=== PATIENT | female | born 1970 | race Caucasian/White ===

== ENCOUNTER 2024-09-25 09:54 | Emergency (ER) | payer BC, SELFPAY ==
--- NOTE | ~2024-09-25 | XR_ITS ---
EXAMINATION: XR CHEST 2 VIEW CLINICAL INFORMATION: Chest pain COMPARISON: None TECHNIQUE: PA and lateral views of the chest obtained. FINDINGS: The lungs are clear. There are no pleural effusions. The cardiomediastinal silhouette is normal. No rib fracture, bone lesion or pneumothorax is detected. Right upper quadrant surgical clips are likely post cholecystectomy. XR/XR chest 2V IMPRESSION: No acute cardiopulmonary disease. Electronically signed by: Arsenio Landon MD 09/25/2024 11:51 AM [facility]
[2024-09-25 11:12] VITALS: BP 121/80; PULSE 81; RESP 18; TEMP 36.1; O2SAT 98; BMI 33.2
--- NOTE | 2024-09-25 11:14 | ED_ITS ---
HPI - General Adult General Chief complaint: Chest Pain Stated complaint: sob Time Seen by Provider: 09/25/24 22:48 Source: patient Mode of arrival: ambulatory Limitations: no limitations History of Present Illness ED Provider: Dr. Cole Harrington HPI narrative: 54-year-old female with a history of hypertension, borderline hyperlipidemia, who presents emergency department for evaluation of chest pain. Patient states she woke up at 04:00 hours with chest pain. She points to her left breast area when asked to localize the pain. She states the pain has been a constant burning sensation which waxes and wanes in intensity. At the time my evaluation the pain was 7/10. Patient states she took Tums with no relief for the pain. She states the pain does not change with breathing but does change with movement. She states she did have an episode of nausea vomiting and diaphoresis associated with lightheadedness as well. She states she does have dyspnea on exertion but no shortness of breath at rest. She states that the pain at 1 point did radiate to her right neck and right jaw. The patient does not take any hormonal replacement/estrogen supplements but does take an [id number] herbal menopause supplement (estrofen). Patient states she did go on a several day cruise and came home on 08/20/2024. She did not have any pain or swelling in her lower extremities. She has had no recent surgeries. Related Data Allergies Allergy/AdvReac Type Severity Reaction Status Date / Time No Known Allergies Allergy Verified 09/25/24 11:15 Review of Systems 2 Review of Systems: Yes all other systems are reviewed and are negative [facility] Past Medical History [facility] Narrative: Social history: She denies tobacco use. She occasionally drinks alcohol. She occasionally eats a THC edible at night for sleep. Social History Social History Alcohol intake: current Alcohol intake frequency: holidays/special occasions only Smoked in Last 30 Days: No Use of substances other than those prescribed or required for medical reasons: Yes Substance Use Type: Marijuana Substance Use Type Other:: edibles Advance Directives: No Advance Directives Information Provided: No Do you have a plan to hurt others: No Plan Patient : No Physical Exam ED Vital Signs: Vital Signs - 24 hr 09/25/24 11:12 09/25/24 18:01 09/25/24 20:23 Temperature 97.0 F 97.0 F 97.5 F Pulse Rate 81 86 81 Respiratory Rate 18 20 24 H Blood Pressure 121/80 108/81 120/81 Pulse Oximetry 98 96 100 Oxygen Delivery Method Room Air Room Air Room Air 09/25/24 20:44 09/25/24 22:30 09/26/24 00:00 Temperature 97.5 F 97.6 F 98.1 F Pulse Rate 81 70 66 Respiratory Rate 24 H 18 18 Blood Pressure 120/81 112/77 121/78 Pulse Oximetry 100 99 98 Oxygen Delivery Method Room Air Room Air Room Air BMI result Body Mass Index 33.2 Vital signs did reveal a variable respiratory rate from 18-24 breaths per minute, O2 sat ranged from 96-100%, blood pressure was normal. She had no tachycardia. Exam: General: Awake, alert in no distress Head: Normocephalic, atraumatic EENT: PERRL, Lids normal, sclera normal, conjunctiva normal, nose normal , ears normal, throat without erythema or exudates Neck: Supple, no adenopathy Lung: breath sounds symmetric, no wheezing, rales or rhonchi Chest: symmetric movement, left costochondral tenderness Heart: regular rate and rhythm, normal S1, S2 no murmurs or rubs Abdomen: soft, non-tender, nondistended, normal bowel sounds Back: no vertebral tenderness, no CVAT Extremities: no deformities, moves all extremities symmetrically, no swelling/edema Neuro: Awake, alert, oriented, normal speech, cranial nerves intact, moves all extremities symmetrically Psych: Pleasant, cooperative Course Course Course Narrative: This is a rapid medical exam performed by Natanael Farfan NP: Additional HPI, ROS, PE not included below will be deferred to primary provider. Patient is a 54-year-old female presenting with chest pain since this am. States yesterday felt not right, today developed chest pain and some shortness of breath. Plan: EKG, labs, CXR Medications Administered Discontinued Medications Generic Name Dose Route Start Last Admin Trade Name Freq PRN Reason Stop Dose Admin Al Hydroxide/Mg Hydroxide 30 ml 09/25/24 23:08 09/25/24 23:35 Magnesium Hydrox/Alum Hydrox 30 Ml Oral.Susp PO 09/25/24 23:09 30 ml ONCE STA Administration Ketorolac Tromethamine 15 mg 09/25/24 23:08 09/25/24 23:35 Ketorolac Tromethamine 15 Mg/Ml Vial IVPUSH 09/25/24 23:09 15 mg ONCE STA Administration Medical Decision Making Medical Decision Making [facility] Narrative: 54-year-old female with a history of hypertension, borderline hyperlipidemia, who presents emergency department for evaluation of chest pain that she woke up with a at 04:00 hours, pain is located in her left anterior chest,. Patient states she woke up at 04:00 hours with chest pain. She points to her left breast area when asked to localize the pain. She had a occasional associated diaphoresis, nausea, vomiting, lightheadedness, pain radiating to her right neck and jaw. By the time I evaluated the patient she had been in the emergency department for 13 hours and continues to have chest pain which she was 05/23. Vital signs were reviewed and she did have intermittent elevation in her respiratory rate to 24, O2 sats ranging from 96-100% with no tachycardia. Physical examination did reveal left anterior chest tenderness along the costochondral joints. Patient did go on a cruise and came back on 08/20/2024 Differential diagnosis: ?Includes but is not limited to myocardial infarction, myocardial ischemia, pulmonary embolism, costochondritis, musculoskeletal pain, pleurisy, pneumothorax, GERD Course: 23:16 My interpretation patient's laboratory evaluation is as follows: CBC was normal. AST and ALT were elevated 55 and 69. Urinalysis was negative. COVID- 19, influenza and RSV were negative. Initial troponin was below detectable limits. Given your symptoms and persistent chest pain I did order a repeat troponin and a D-dimer. Given her tenderness over costochondral joints, I ordered Toradol 15 mg IV. 00:24 The patient's repeat high sensitive troponin I was below detectable limits was reassuring suggesting that her chest pain is not caused by myocardial infarction or myocardial injury. Patient's D-dimer was below 230 which is a good negative predictive for pulmonary embolism. The patient did get some improvement of her pain with the IV Toradol. At this time I believe the patient's pain is caused by costochondritis and I did discuss this with the patient. She was advised to take ibuprofen 400 mg 3 times a day for 4 days then 3 times a day as needed for pain. She was also advised to take Tylenol 3 times a day as needed for pain. She was given printed and verbal instructions and discharged home. Admission/Observation Consideration of admission/observation: Escalation of care including admission/observation considered Lab Data MDM Lab Attestation statement: I reviewed the patient's lab results. 09/25/24 11:31 09/25/24 11:31 Labs: Lab Results 09/25/24 09/25/24 Range/Units 11: 23:32 WBC 8.6 (4.8-10.8) X10*3/uL RBC 4.97 (4.20-5.50) X10*6/uL Hgb 14.9 (12.0-16.0) g/dl Hct 43.7 (37.0-47.0) % MCV 87.9 (80.0-98.0) fL MCH 30.0 (27.0-33.0) pg MCHC 34.1 (31.0-35.0) g/dl RDW 13.0 (11.0-16.0) % Plt Count 344 (160-400) X10*3/uL MPV 9.5 (9.4-12.3) fL Immature Gran % (Auto) 0.3 (0.0-0.4) % Neut % (Auto) 48.8 (45-73) % Lymph % (Auto) 42.5 H (20-40) % [place] % (Auto) 6.3 (2-11) % Eos % (Auto) 1.4 (0-4) % Baso % (Auto) 0.7 (0-2) % Lymph # (Auto) 3.7 (1.2-4.9) X10*3/uL [place] # (Auto) 0.5 (0.1-1.2) X10*3/uL Eos # (Auto) 0.1 (0.0-0.4) X10*3/uL Baso # (Auto) 0.1 (0.0-0.2) X10*3/uL Abs Immat Gran (auto) 0.03 (0.00-0.03) X10*3/uL Absolute Neuts (auto) 4.2 (2.0-8.3) x10*3/uL Absolute Nucleated RBC 0.000 (0.0-0.012) X10*3/uL Nucleated RBC % (auto) 0.0 (0.0-0.2) /100WBC PT 11.5 (10.9-12.4) SEC INR 1.0 (0.9-1.1) D-Dimer High Sensitivty 226 NG/ML Sodium 142 (135-145) mmol/L Potassium 3.9 (3.3-5.1) mmol/L Chloride 104 (96-108) mmol/L Carbon Dioxide 27 (22-29) mmol/L Anion Gap 15 (12-20) BUN 10 (9-16) mg/dL Creatinine 0.85 (0.5-1.4) mg/dL Estim Creat Clear Calc 83.0 Estimated GFR > 60 Random Glucose 107 (60-115) mg/dL Calcium 10.2 (8.4-10.2) mg/dL Magnesium 2.0 (1.6-2.6) mg/dL Total Bilirubin 0.6 (0.0-1.0) mg/dL AST 55 H (5-31) U/L ALT 69 H (0-31) U/L Alkaline Phosphatase 84 (39-117) U/L Troponin I High Sens < 2.7 < 2.7 (<3.5-17.0) ng/L Total Protein 8.3 H (6.5-8.0) g/dL Albumin 4.6 (3.5-5.0) g/dL Urine Color Yellow Urine Appearance Clear Urine pH 5.5 (5.0-9.0) Ur Specific [place] 1.015 (1.005-1.025) Urine Protein Negative (Neg-Trace) mg/dL Urine Glucose (UA) Negative (Negative) mg/dL Urine Ketones Negative (Negative) mg/dL Urine Blood Negative (Negative) Urine Nitrite Negative (Negative) Ur Leukocyte Esterase Negative (Negative) Influenza Type A (PCR) NEGATIVE (Negative) Influenza Type B (PCR) NEGATIVE (Negative) RSV RNA Qual (PCR) NEGATIVE (Negative) SARS-CoV-2 RNA (RT-PCR) NEGATIVE (Negative) Independent Interpretation I performed an independent interpretation of an: EKG and Plain X-Ray Interpretation: My interpretation patient's two view chest x-ray is as follows: No acute disease My interpretation of the patient's 12 EKG done at 11:11 hours is as follows: Normal sinus rhythm with a rate of 70, normal ME interval, QRS duration and QTC interval, no ST segment elevation, no ST segment depression, no significant T- wave abnormalities Radiology Impression Discussion of test interpretation with radiology: I have reviewed the radiologist's reading. Radiologist Impression: XR chest 2V IMPRESSION: No acute cardiopulmonary disease. Electronically signed by: Arsenio Landon MD 09/25/2024 11:51 AM EST RP Chronic Conditions Patient?s care impacted by: Hypertension and Other (Borderline hyperlipidemia) Discharge Plan Discharge Clinical Impression: Acute costochondritis Patient Disposition: Home, Self-Care Instructions: Costochondritis (ED) Additional Instructions: You had a complete blood count which was normal. Your comprehensive metabolic panel did reveal a very slight elevation in your AST and ALT of 55 and 69. This is not very significant elevation. You should follow-up with your doctor to get repeat liver testing and for possible further testing if you are liver tests are worse. These tests should be repeated in 2-4 weeks. Your high sensitive troponin I (a marker of heart damage/heart attack) was initially normal and the repeat troponin 12 hours later was also normal. This is very reassuring and suggests that your chest pain was not due to heart attack or heart damage. Your D-dimer (marker of making too many blood clots in your body) was less than 230 which again is reassuring suggesting that your chest pain is not caused by a blood clot to your lungs. On your examination you are tender over the costochondral joints (rib to sternum joints close) which most likely explains your pain. Take ibuprofen 200 mg pills, 2 pills every 6 hours (3 times a day) for 4 days then every 6 hours as needed for pain Follow-up with your doctor in 2 days. Please return to the emergency department if your symptoms get worse or if you develop any symptoms that are concerning to you. Print Language: Nepali
--- NOTE | 2024-09-25 11:14 | ECG_ITS ---
Test Reason : cp Blood Pressure : / mmHG Vent. Rate : 070 BPM Atrial Rate : 070 BPM P-R Int : 130 ms QRS Dur : 072 ms QT Int : 388 ms P-R-T Axes : 027 -27 022 degrees QTc Int : 419 ms Normal sinus rhythm Possible Anterior infarct , age undetermined Abnormal ECG No previous ECGs available Referred By: Lydia Farfan Electronically Signed By:Darron Loomis
[2024-09-25 11:39] LABS: MANUAL DIFF FLAG NO
[2024-09-25 11:40] LABS: Basophils Absolute Auto 0.1 X10*3/uL (0.0-0.2); Basophils Percent Auto 0.7 % (0-2); Eosinophils Absolute Auto 0.1 X10*3/uL (0.0-0.4); Eosinophils Percent Auto 1.4 % (0-4); Hematocrit 43.7 % (37.0-47.0); Hemoglobin 14.9 g/dl (12.0-16.0); Imm Gran Abs Auto 0.03 X10*3/uL (0.00-0.03); Imm Gran Pct Auto 0.3 % (0.0-0.4); Lymphocytes Absolute Auto 3.7 X10*3/uL (1.2-4.9); Lymphocytes Percent Auto 42.5 % (20-40); Mean Corpuscular HGB Conc 34.1 g/dl (31.0-35.0); Mean Corpuscular Volume 87.9 fL (80.0-98.0); Mean Platelet Volume 9.5 fL (9.4-12.3); Monocytes Absolute Auto 0.5 X10*3/uL (0.1-1.2); Monocytes Percent Auto 6.3 % (2-11); Neutrophils Absolute Auto 4.2 x10*3/uL (2.0-8.3); Neutrophils Percent Auto 48.8 % (45-73); Platelet Count 344 X10*3/uL (160-400); Red Blood Count 4.97 X10*6/uL (4.20-5.50); White Blood Count 8.6 X10*3/uL (4.8-10.8)
[2024-09-25 11:42] LABS: Appearance Urine Clear; Color Urine Yellow; Glucose Urine UA Negative (Negative); Leukocyte Esterase Urine Negative (Negative); Nitrite Urine Negative (Negative); PH 5.5 (5.0-9.0); Specific Gravity - Urine 1.015 (1.005-1.025); Urine Blood Negative (Negative); Urine Ketones Negative (Negative); Urine Protein Negative (Neg-Trace)
[2024-09-25 12:00] LABS: Alanine Aminotransferase 69 U/L (0-31); Albumin Level 4.6 g/dL (3.5-5.0); Alkaline Phosphatase 84 U/L (39-117); Anion Gap 15 (12-20); Aspartate Amino Transferase 55 U/L (5-31); Bilirubin Total 0.6 mg/dL (0.0-1.0); Blood Urea Nitrogen 10 mg/dL (9-16); Calcium 10.2 mg/dL (8.4-10.2); Carbon Dioxide 27 mmol/L (22-29); Chloride 104 mmol/L (96-108); Estimated Glomerular Filt Rate > 60; Glucose Random 107 mg/dL (60-115); Potassium 3.9 mmol/L (3.3-5.1); Prothrombin Time 11.5 SEC (10.9-12.4); Sodium 142 mmol/L (135-145); Total Protein 8.3 g/dL (6.5-8.0)
[2024-09-25 12:05] LABS: Troponin-I High Sensitivity < 2.7 ng/L (<3.5-17.0)
[2024-09-25 12:24] LABS: Influenza A PCR NEGATIVE (Negative); Influenza B PCR NEGATIVE (Negative); Resp Syncy Virus RNA Qual PCR NEGATIVE (Negative); SARS COV2 PCR INHOUSE NEGATIVE (Negative)
[2024-09-25 18:01] VITALS: BP 108/81; PULSE 86; RESP 20; TEMP 36.1; O2SAT 96
--- NOTE | 2024-09-25 18:02 | PC.NURSE ---
pt came to triage is saying her chest pain is worsening and her feet are tingling at this time. pt stated I have been sitting in this waiting room since 10 am with chest pain, this is rediculous
--- NOTE | 2024-09-25 20:22 | PC.NURSE ---
Pt was in the waiting room and she threw up in the bathroom and felt as though she was going to pass out. Told her to take a seat and retreived a wheelchair for her. Reassesed vitals in triage room.
[2024-09-25 20:23] VITALS: BP 120/81; PULSE 81; RESP 24; TEMP 36.4; O2SAT 100
[2024-09-25 20:44] VITALS: BP 120/81; PULSE 81; RESP 24; TEMP 36.4; O2SAT 100
[2024-09-25 22:30] VITALS: BP 112/77; PULSE 70; RESP 18; TEMP 36.4; O2SAT 99
--- NOTE | 2024-09-25 22:30 | MHC.EDTECH ---
Patient brought from the waiting room,placed pt on the nurse monitoring,vitals taken,pt appears comfortable
[2024-09-25] MEDS: Ketorolac Tromethamine 15 MG/ML VIAL IVPUSH (23:35)
[2024-09-25] MEDS: Magnesium Hydrox/Alum Hydrox 30 ML ORAL.SUSP PO (23:35)
[2024-09-25 23:58] LABS: Troponin-I High Sensitivity < 2.7 ng/L (<3.5-17.0)
[2024-09-26] VITALS: BP 121/78; PULSE 66; RESP 18; TEMP 36.7; O2SAT 98
--- NOTE | 2024-09-26 00:05 | MHC.EDTECH ---
Rounds and vitals completed,patient is resting with eyes closed appears comfortable
[2024-09-26 00:10] LABS: D Dimer High Sensitivity 226 NG/ML
--- NOTE | 2024-09-26 00:12 | PC.NURSE ---
IV line placed in right wrist. Labs obtained and sent down. 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 PT resting quietly in no acute distress. PT medicated as per MAR effectiveness pending. Safety precautions in place plan of care ongoing
[2024-09-26 00:34] VITALS: BP 121/78; PULSE 66; RESP 18; TEMP 36.7; O2SAT 98
== END 2024-09-26 00:48 | disposition home or self-care (01) ==
PROVIDERS: Registered Nurse Emergency; Emergency Provider Emergency Medicine Emergency Medical Services
DX: M94.0 Chondrocostal junction syndrome [Tietze] (principal); R07.9 Chest pain, unspecified; I10 Essential (primary) hypertension; E78.5 Hyperlipidemia, unspecified; Z03.818 Encounter for observation for suspected exposure to other biological agents ruled out
CPT/HCPCS: 0241U; 36415; 71046; 80053; 81003; 83735; 84484; 85025; 85379; 85610; 93005; 96374; 99284; 99285; J1885

== ENCOUNTER → 2024-09-25 11:14 | Outpatient (BNV) | payer SELFPAY | PROVIDERS: Visit Provider Internal Medicine Cardiovascular Disease | DX: R94.31 Abnormal electrocardiogram [ECG] [EKG] (principal) | CPT/HCPCS: 93010 ==

== ENCOUNTER 2025-03-08 13:33 | Outpatient (AMB) | payer BC, SELFPAY ==
--- NOTE | 2025-03-08 13:50 | MHC.PC.OV ---
Vital Signs 03/08/25 13:52 Height 5 ft 2.99 in Weight 184 lb 2 oz BMI 32.6 BP 100/62 Blood Pressure Location Lt brachial Position Sitting Pulse 90 Pulse Source Pulse Oximeter Temp 97.4 F Temp Source Temporal Artery Scan Pulse Oximetry (%) 97 Oxygen Delivery Method Room Air Intake Visit Reasons: establish care Intake Note: Patient is a new patient here to establish care for Border line cholesterol, HTN, Depression. Transferring care from [place] ([place]). Medical records have been requested and have not received. Hospital Tray Service Worker Required: No Eyeglass Lens Grinder: Not Required per policy Accompanied by: Self / Same As Patient Allergies No Known Allergies Allergy (Verified 03/08/25 14:12) Medication List - Last Reconciled 03/08/25 by Liliya Moore PA-C lisinopril 20 mg PO DAILY loratadine (Claritin) 10 mg PO DAILY melatonin 10 mg PO BEDTIME PRN rhubarb root extract (Estroven Complete Menopause Relief) mg PO Tobacco use date assessed: 03/08/25 Dental Screening Dental Screen Date: 03/08/25 Did you have a dental visit in the last 12 months?: No Did you have a dental problem in the last 6 months where you did not have access to dental care?: No Was dental information given to patient?: No HPI establish care HPI Details 54 year old female coming to the office for the first time. Presenting with unexplained right-sided nipple discharge. It has occurred consistently without abnormal findings on recent imaging and presents similarly to a past issue on the left breast leading to duct excision. She has borderline hyperlipidemia noted since high school, and essential hypertension, currently managed with lisinopril 20 mg. She expressed concerns about elevated heart rate alerts and an experience of low blood pressure and near-syncope in [place], potentially related to dehydration. The patient's childhood included significant sun exposure, prompting current skin cancer concerns due to observed scalp changes and a facial dent. Pap smears: UTD and follows with [facility] mammogram: UTD last spring 2023 colonoscopy: UTD 2023 [facility] Surgical History H/O breast surgery History of ankle surgery History of left oophorectomy History of hernia surgery History of cholecystectomy History of breast biopsy History of reduction surgery of right breast History of reduction surgery of left breast Family History Other Substance use disorder Social History Housing: Condominium Alcohol intake: current Alcohol intake frequency: holidays/special occasions only Patient Tobacco Use Status: Former Tobacco user Years Smoked: 30 years ago e-Cigarette/Vaping Use: Never Used Second Hand Smoke Exposure: Yes service: No Current occupational status: employed 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 1. Little interest or pleasure in doing things: several days 2. Feeling down, depressed, or hopeless: several days 3. Trouble falling or staying asleep, or sleeping too much: several days 4. Feeling tired or having little energy: several days 5. Poor appetite or overeating: not at all 6. Feeling bad about yourself - or that you are a failure or have let yourself or your family down: not at all 7. Trouble concentrating on things, such as reading the newspaper or watching television: not at all 8. Moving or speaking so slowly that other people could have noticed. Or the opposite - being so fidgety or restless that you have been moving around a lot more than usual: not at all 9. Thoughts that you would be better off or of hurting yourself in some way: not at all Total score: 4 Depression Screening Interpretation: Positive (referral placed for counseling ) Depression Screening Follow-up: Existing condition Depression Screening Done: Yes Source: Developed by Drs. Elio Mathis, Queta De Jesus, Clayton Mc and colleagues, with an educational kinga from [employer]. Thrive Questionnaire Date Thrive assessed: 03/01/25 I am a: Patient What is your living situation today?: I have a steady place to live Within the past 12 months, did the food you bought not last and you didn't have the money to get more?: Never true Within the past 12 months, did you worry whether your food would run out before you got money to buy more?: Never true Do you have trouble paying for medicines?: No Do you have trouble getting transportation to medical appointments?: No Do you have trouble paying your heating and electricity bill?: No Do you have trouble taking care of your child, family member or friend?: No Do you have trouble with day-to-day activities such as bathing, preparing meals, shopping, managing finances, etc.?: No Are you currently unemployed and looking for a job?: No Are you interested in more education?: I choose not to answer this question Please select the resources that you would like help with: None Currently or been in a relationship where the following occur: Controlled Emotionally THRIVE Score: 1 AUDIT C Alcohol Use Questionnaire (AUDIT-C) 1. How often do you have a drink containing alcohol?: Monthly or less 2. How many drinks containing alcohol do you have on a typical day when you are drinking?: 1 or 2 3. How often do you have six or more drinks on one occasion?: Never Total Score: 1 ALONDRA-7 AMB Questionnaire ALONDRA-7 Date ALONDRA - 7 assessed: 03/08/25 Feeling nervous, anxious, or on edge: 1 = Several days Not being able to stop or control worryin = More than half the days Worrying too much about different things: 2 = More than half the days Trouble relaxin = Several days Being so restless that it is hard to sit still: 0 = Not at all Becoming easily annoyed or irritable: 1 = Several days Feeling afraid as if something awful might happen: 0 = Not at all Total ALONDRA-7 score (0-4 normal; 5-9 mild; 10-14 moderate; 15-21 severe): 7 Source: Developed by Drs. Elio Mathis, Queta De Jesus, Clayton Mc and colleagues, with an educational kinga from [employer]. ALONDRA-7 Assessment Billing ALONDRA-7 Assessment Tool: ALONDRA-7 Assessment 64713 Review of Systems Const Denies body aches, Denies chills, Denies fever(s), Denies headache(s) and Denies poor appetite Eyes Reports no additional complaints ENT Denies dizziness and Denies headache(s) Card Denies chest pain, Denies syncope, Denies edema, Denies irregular heart rhythm, Reports lightheadedness and Denies dyspnea Resp Denies cough and Denies dyspnea Reports no additional complaints Musc Reports no additional complaints and Denies abnormal gait Skin/Breast Reports as per HPI Neuro Denies abnormal gait, Denies dizziness, Denies syncope and Denies headache(s) Psych Reports no additional complaints Physical exam (Primary Care) Vital Signs: Last Vital Signs Temp 97.4 F 03/08/25 13:52 Pulse 90 03/08/25 13:52 BP 100/62 03/08/25 13:52 Pulse Ox 97 03/08/25 13:52 Oxygen Delivery Method Room Air 03/08/25 13:52 BMI result Body Mass Index 32.6 Tobacco/Smoking Status: Tobacco use Status Tobacco use date assessed 03/08/25 03/08/25 13:56 Patient Tobacco Use Status Former Tobacco user 03/08/25 14:05 e-Cigarette/Vaping Use Never Used 03/08/25 14:03 PHQ-9: PHQ-9 Score PHQ-9: Total score 4 03/08/25 13:56 Depression Screening Interpretation: Positive (referral placed for counseling ) Depression Screening Follow-up: Existing condition Thrive Assessment: Date of Thrive Assessment Date Thrive assessed 03/01/25 03/08/25 13:56 Currently or been in a relationship where the following occur: Controlled Emotionally Const General: cooperative, healthy appearing, comfortable and no acute distress Orientation/consciousness: patient oriented x3 HENMT Head: Yes normocephalic Ears: hearing grossly normal bilaterally General nose exam: Normal external nose present Eyes General: appearance normal, both eyes and all related structures Conjunctivae: conjunctivae normal Neck Neck: Yes full ROM and Yes no lymphadenopathy Resp Effort & Inspection: normal respiratory effort Auscultation: clear to auscultation bilaterally, no crackles, no rales, no rhonchi and no wheezes Cardio Rate: regular rate Rhythm: regular rhythm Skin General skin exam: no rashes or lesions noted Neuro General: patient oriented x3 Gait exam (Neuro): Normal gait present Extrem General: Yes normal to inspection, Yes full ROM and No edema Psych Affect: normal affect Attitude: cooperative Insight: Good insight present (Psych) Judgement: Good judgement present (Psych) Coding Level of Care Code New Pt Level 4 (98763) Diagnoses Screening for hypercholesterolemia Z13.220 Depression F32.A Hypertension I10 Nipple discharge N64.52 Skin lesion L98.9 Atypical nevi D22.9 Tachycardia R00.0 Additional Codes ALONDRA-7 Assessment Billing - ALONDRA-7 Assessment Tool: ALONDRA-7 Assessment 15378 ([id number]) Assessment & Plan Assessment & Plan (1) Screening for hypercholesterolemia: Code(s): Z13.220 - Encounter for screening for lipoid disorders Category: Medical Plan: Blood work ordered. She does have a history of borderline hypercholesterolemia tracing back to adolescence. (2) Depression: Code(s): F32.A - Depression, unspecified Category: Medical Plan: Patient having symptoms of depression declining medical management at this time and referral was placed to counseling. (3) Hypertension: Code(s): I10 - Essential (primary) hypertension Category: Medical Plan: Continue on current blood pressure medication. Avoid salt intake and encourage healthy diet and regular exercise. Patient having low blood pressure on exam today plans to decrease lisinopril to 10 mg at patient request and follow up in 6 weeks for blood pressure evaluation. (4) Nipple discharge: Code(s): N64.52 - Nipple discharge Category: Medical Plan: Patient complaining of right nipple discharge. She does have a history of left nipple discharge resulting in a duct removal. She does follow with [facility] and has had an ultrasound, mammogram MRI of the right breast which have all been normal. She is unsure if blood work has ever been conducted for this issue. She is following up with the [facility] [place] in a few months. Advised patient to reach out to [facility] to confirm appointment in ordered for blood work for further evaluation. (5) Skin lesion: Code(s): L98.9 - Disorder of the skin and subcutaneous tissue, unspecified Category: Medical Plan: Patient has a multiple skin lesions on her scalp and face referral was placed to Dermatology for further evaluation. (6) Atypical nevi: Code(s): D22.9 - Melanocytic nevi, unspecified Category: Medical Plan: Patient has multiple atypical nevi that she would like evaluated. Referral was placed to Dermatology today. (7) Tachycardia: Code(s): R00.0 - Tachycardia, unspecified Category: Medical Plan: Patient having intermittent reported episodes of tachycardia that are picked up by her apple watch. I did discuss with patient she should be checking the pulse in his secondary way using pulse ox or manually checking pulse to verify tachycardia. She has had Holter monitor in the past which has been normal. Continue to monitor symptoms at this time. Her episodes of tachycardia are asymptomatic Plan I reviewed the unexplained nipple discharge with the patient and ordered a prolactin lab to evaluate for the possibility of a prolactinoma. Due to past imaging results being normal and continuation of symptoms, this evaluation is warranted. Regarding hypertension, I adjusted lisinopril from 20 mg to 10 mg and advised monitoring blood pressure levels to track improvement, considering past episodes of low blood pressure and near-syncope attributed to possible dehydration. A referral to [facility] was provided for evaluation of scalp and facial skin lesions and alterations to assess for potential malignancy. I recommended utilizing a pulse oximeter for more accurate heart rate monitoring due to possible inaccuracies from smartwatch alerts. Emphasized the importance of staying hydrated and avoiding excessive salt to stabilize blood pressure further. I scheduled a follow-up consultation in six weeks for reassessment of blood pressure control and overall health status. This note was constructed using voice recognition software. While every effort has been made to ensure accuracy and social worker clinical, still areas may have been included sometimes these areas may affect the content or meeting of the given symptoms. Total time spent caring for the patient today was 30 minutes. This includes time spent before the visit reviewing the chart, time spent during the visit, and time spent after the visit and documentation. Patient was informed and verbally consented to the use of an ambient scribe for clinic note documentation during this visit. Orders: Orders Prolactin Today N64.52 - Nipple discharge Lutenizing Hormone Today N64.52 - Nipple discharge TSH reflex Free T4 Today Z00.00 - Encounter for general adult medical examination without abnormal findings Follicle Stimulating Hormone Today N64.52 - Nipple discharge Complete Blood Count Auto Diff Today Z00.00 - Encounter for general adult medical examination without abnormal findings Comprehensive Met. Panel Today Z00.00 - Encounter for general adult medical examination without abnormal findings Lipid Panel Today Z13.220 - Encounter for screening for lipoid disorders Vitamin B12 and Folate Today Z00.00 - Encounter for general adult medical examination without abnormal findings Vitamin D 25-OH Total Today Z00.00 - Encounter for general adult medical examination without abnormal findings Referrals Counseling Referral F32.A - Depression, unspecified Dermatology Referral D22.9 - Melanocytic nevi, unspecified, L98.9 - Disorder of the skin and subcutaneous tissue, unspecified Medications: New lisinopril 10 mg PO DAILY 90 tabs 0RF
[2025-03-08 13:52] VITALS: BP 100/62; PULSE 90; TEMP 36.3; O2SAT 97; BMI 32.6
--- OUTSIDE RECORDS SUMMARY | 2025-03-08 14:18 | XMS_ITS | Clinical Summary ---
Author Organization [facility] [place] Address [address] [place] [address] Care Team Providers Care Internet Marketing Director Name Role Phone Caitlin Ruelas MD Primary Care Provider [phone] Allergies Active Allergy Reactions Criticality Noted Date Comments Other 10/10/2024 Seasonal Allergies Medications lisinopriL (PRINIVIL,ZESTR IL) 20 mg tablet Take 1 Tablet by mouth daily. 08/08/2024 Active loratadine 10 mg capsule Take 1 Capsule by mouth daily. 02/25/2023 Active Active Problems Problem Noted Date Diagnosed Date LGSIL of cervix of undetermined significance Migraine 09/25/2014 IBS (irritable bowel syndrome) 09/10/2011 Change in bowel habits 07/28/2011 Mastalgia 07/28/2011 Immunizations Name Administration Dates Next Due Hepatitis B (Tiwiahm-B-Cqnmg , Recombivax HB-Adult) 19yo and older 08/25/2016,03/24/2016,02/26/2016 Influenza trivalent, 0.5mL, preservative free (Fluarix; FluLaval; Fluzone) ages 6mo and older (Afluria) 3 years and older 08/08/2024 MMR, measles mumps and rubel la Live (Priorix; M-M-R II) 12mo and older 03/24/2016,02/26/2016 Pfizer (ages 12 & older) Bivalent, COVID-19 09/14 Tdap Tetanus diptheria acell ular pertussis (Boostrix; Adacel) 7yo and older 09/25/2014 Surgical History Surgery Date Site/Laterality Comments OTHER SURGICAL HISTORY PROCEDURE: HISTORY OTHER; COMMENT: breast reduction 11 yrs ago, left breast: removal of duct, 2 open biopsies ORTHOPEDIC SURGERY PROCEDURE: HISTORICAL ORTHOPEDIC SURGERY; COMMENT: left ankle s/p trauma CHOLECYSTECTOMY PROCEDURE: HISTORICAL CHOLECYSTECTOMY OTHER SURGICAL HISTORY PROCEDURE: HISTORY OTHER; COMMENT: oophorectomy - left ovarian teratoma FLEXIBLE SIGMOIDOSCOPY 09/10/2011 PROCEDURE: [place] SIGMOIDOSCOPY FLX DX W/COLLJ SPEC BR/WA IF PFRMD; COMMENT: normal BREAST LUMPECTOMY PROCEDURE: ---- BREAST LUMP BIOPSY ----; COMMENT: 2 on left Medical History Medical History Date Comments Change in bowel habits 07/28/2011 DX:Change in bowel habits Mastalgia 07/28/2011 DX:Mastalgia LGSIL of cervix of undetermi joe significance 05/26/2015 DX:LGSIL of cervix of undete rmined significance Family History Medical History Relation Name Comments Heart attack Father age 55 Diabetes Maternal Grandmother Diabetes Mother Other: a fib Mother Strabismus Other Hypertension Paternal Grandmother Blindness Neg Hx Breast cancer Neg Hx Cataracts Neg Hx Colon cancer Neg Hx Glaucoma Neg Hx Macular degeneration Neg Hx Relation Name Status Comments Father Maternal Grandmother Mother Other Paternal Grandmother Social History Tobacco Use Types Packs/Day Years Used Date Smoking Tobacco: Former Cigarettes Q uit: 11/14/1993 Smokeless Tobacco: Never Alcohol Use Standard Drinks/Week Comments Yes 0 (1 standard drink = 0.6 oz pur e alcohol) Comments No Sex and Gender Information Value Date Recorded Sex Assigned at Not on file Legal Sex Female 3:00 PM EDT Gender Identity Not on file Sexual Orientation Not on file Obstetrics History Last Filed Vital Signs Vital Sign Reading Time Taken Comments Blood Pressure 104/74 10/30/2024 2:34 PM EST Pulse 82 10/30/2024 2:34 PM EST Temperature 36.4 ??C (97.5 ??F) 10/30/2024 2:34 PM ES T Respiratory Rate 14 10/30/2024 2:34 PM EST Oxygen Saturation - - Inhaled Oxygen Concentration - - Weight 87.5 kg (193 lb) 10/30/2024 2:34 PM EST Height 162.6 cm (5' 4 ) 10/30/2024 2:34 PM EST Body Mass Index 33.13 10/30/2024 2:34 PM EST Plan of Treatment Upcoming Encounters Date Type Department Care Team (Late Contact Info) Description 08/09/2025 4:00 PM EDT Office Visit Adult Medicine [address] [phone] Caitlin Ruelas MD [address] [place] [id number] Health Maintenance Due Date Last Done Comments Breast Cancer Screening 1970 Depression Screening 09/12/2020 HIV Screening 09/12/2020 Hepatitis C Screening 09/12/2020 Social Influencers of Health Screening 09/12/2020 Pneumococcal Vaccine: 50+ Years (1 of 1 - PCV) 2022 Zoster Vaccines (1 of 2) 2022 COVID-19 Vaccine (5 - season) 2024 09/29/2022, 10/30/2021, 02/26/2021, Additional history exists DTaP,Tdap,and Td Vaccines (3 - Td or Tdap) 09/25/2024 09/25/2014, 07/10/2007 Hypertension/CHF/CAD Annual BMP Blood Test 03/30/2025 03/30/2024, 03/30/2024 Cervical Cancer Screening: HPV 03/23/2028 03/23/2023 Cholesterol Screening (Lipid Panel) 03/30/2029 03/30/2024, 03/30/2024 Colorectal Cancer Screening: Colonoscopy 05/25/2034 05/25/2024 MMR Vaccines Aged Out 03/24/2016, 02/26/2016 No lo nger eligible based on patient's age to complete this topic Hepatitis B Vaccines Completed 08/25/2016, 03/24/2016, 02/26/2016 Influenza Vaccine Completed 08/08/2024, , 09/15/2021, Additional history exists HIB Vaccines Aged Out No longer eligi ble based on patient's age to complete this topic HPV Vaccines Aged Out No longer eligi ble based on patient's age to complete this topic Hepatitis A Vaccines Aged Out No long er eligible based on patient's age to complete this topic IPV Vaccines Aged Out No longer eligi ble based on patient's age to complete this topic Meningococcal ACWY Vaccine Aged Out N o longer eligible based on patient's age to complete this topic Meningococcal B Vaccine Aged Out No l onger eligible based on patient's age to complete this topic Pneumococcal Vaccine: Pediatrics (0 to 5 Years) and At-Risk Patients (6 to 64 Years) Aged Out No longer eligible based on patient's age to complete this topic RSV Immunization Patients Under 20 months Aged Out No longer eligible based on patient's age to complete this topic Varicella Vaccines Aged Out No longer eligible based on patient's age to complete this topic Procedures Procedure Name Priority Date/Time Associated Diagnosis Comments COLONOSCOPY Routine 05/25/2024 ANNUAL BMP BLOOD TEST Routine 03/30/2024 LIPID PANEL Routine 03/30/2024 HPV Routine 03/23/2023 from Last 3 Months or Most Recently Relevant to Health Maintenance Results * Colonoscopy (05/25/2024) [facility] Colonoscopy no interpretation , abstracted Anatomical Region Laterality Modality Other [facility] Provider HEALTH MAINTENANCE Final Result * Annual BMP Blood Test (03/30/2024) [facility] Annual BMP Blood Test abstracted [facility] Provider HEALTH MAINTENANCE Final Result * (ABNORMAL) Lipid panel (03/30/2024) [facility] LDL/HDL Ratio 4 0 - 4 Triglycerides 125 0 - 150 mg/dL Cholesterol 219(A) 0 - 200 mg/dL HDL 55 >=40 mg/dL LDL Cholesterol 139(A) 0 - 100 mg/dL Blood Venous blood specimen / Unknown [facility] Provider LAB BLOOD ORDERABLES Chela l Result * Cervical Cancer Screening: HPV (03/23/2023) [facility] Cervical Cancer Screening: HPV no interpretation , abstracted [facility] Provider HEALTH MAINTENANCE Final Result from Last 3 Months or Most Recently Relevant to Health Maintenance Insurance [facility] Care Teams Internet Marketing Director Relationship Specialty Start Date End Date Caitlin Ruelas MD [address] [place] [phone] PCP - General Internal Medicine 06/21/22
== END 2025-03-08 14:44 | disposition home or self-care (01) ==
LOC: HO.HMCH 13:34
DX: Z13.220 Encounter for screening for lipoid disorders (principal); F32.A Depression, unspecified; I10 Essential (primary) hypertension; N64.52 Nipple discharge; L98.9 Disorder of the skin and subcutaneous tissue, unspecified; D22.9 Melanocytic nevi, unspecified; R00.0 Tachycardia, unspecified

== ENCOUNTER → 2025-03-08 13:33 | Outpatient (BNVA) | payer BC, SELFPAY | DX: F32.A Depression, unspecified (principal); I10 Essential (primary) hypertension; N64.52 Nipple discharge; L98.9 Disorder of the skin and subcutaneous tissue, unspecified; D22.9 Melanocytic nevi, unspecified; R00.0 Tachycardia, unspecified; Z79.899 Other long term (current) drug therapy | CPT/HCPCS: 96127 ==

== ENCOUNTER 2025-03-15 06:53 | Outpatient (REF) | payer BC, SELFPAY ==
--- OUTSIDE RECORDS SUMMARY | 2025-03-15 06:56 | XMS_ITS | Clinical Summary ---
Author Organization [facility] [place] Address [address] [place] [address] Care Team Providers Care Tree Trimming Line Technician Name Role Phone Caitlin Ruelas MD Primary Care Provider [phone] Allergies Active Allergy Reactions Criticality Noted Date [...] Name Administration Dates Next Due Hepatitis B (Jvlcxxt-W-Bfwka , Recombivax HB-Adult) 19yo and older 08/25/2016,03/24/2016,02/26/2016 [...] left ovarian teratoma FLEXIBLE SIGMOIDOSCOPY 09/10/2011 PROCEDURE: [place] SIGMOIDOSCOPY FLX DX W/COLLJ SPEC BR/WA IF [...] 4:00 PM EDT Office Visit Adult Medicine [address] [phone] Caitlin Ruelas MD [address] [place] [phone] Health Maintenance Due Date Last Done Comments [...] to Health Maintenance Results * Colonoscopy (05/25/2024) [facility] Colonoscopy no interpretation , abstracted Anatomical Region Laterality Modality Other [facility] Provider HEALTH MAINTENANCE Final Result * Annual BMP Blood Test (03/30/2024) [facility] Annual BMP Blood Test abstracted [facility] Provider HEALTH MAINTENANCE Final Result * (ABNORMAL) Lipid panel (03/30/2024) [facility] LDL/HDL Ratio 4 0 - 4 Triglycerides 125 0 - 150 mg/dL Cholesterol 219(A) 0 - 200 mg/dL HDL 55 >=40 mg/dL LDL Cholesterol 139(A) 0 - 100 mg/dL Blood Venous blood specimen / Unknown [facility] Provider LAB BLOOD ORDERABLES Chela l Result * Cervical Cancer Screening: HPV (03/23/2023) [facility] Cervical Cancer Screening: HPV no interpretation , abstracted [facility] Provider HEALTH MAINTENANCE Final Result from Last 3 Months or Most Recently Relevant to Health Maintenance [facility] Care Teams Tree Trimming Line Technician Relationship Specialty Start Date End Date Caitlin Ruelas MD [address] [place] [id number] PCP - General Internal Medicine 06/21/22
[2025-03-15 07:04] LABS: MANUAL DIFF FLAG NO
[2025-03-15 07:19] LABS: Basophils Absolute Auto 0.1 X10*3/uL (0.0-0.2); Basophils Percent Auto 0.8 % (0-2); Eosinophils Absolute Auto 0.2 X10*3/uL (0.0-0.4); Eosinophils Percent Auto 2.8 % (0-4); Hematocrit 40.5 % (37.0-47.0); Hemoglobin 13.5 g/dl (12.0-16.0); Imm Gran Abs Auto 0.02 X10*3/uL (0.00-0.03); Imm Gran Pct Auto 0.3 % (0.0-0.4); Lymphocytes Absolute Auto 3.2 X10*3/uL (1.2-4.9); Lymphocytes Percent Auto 44.4 % (20-40); Mean Corpuscular HGB Conc 33.3 g/dl (31.0-35.0); Mean Corpuscular Hemoglobin 29.1 pg (27.0-33.0); Mean Corpuscular Volume 87.3 fL (80.0-98.0); Mean Platelet Volume 9.5 fL (9.4-12.3); Monocytes Absolute Auto 0.5 X10*3/uL (0.1-1.2); Monocytes Percent Auto 7.1 % (2-11); Neutrophils Absolute Auto 3.2 x10*3/uL (2.0-8.3); Neutrophils Percent Auto 44.6 % (45-73); Platelet Count 316 X10*3/uL (160-400); Red Blood Count 4.64 X10*6/uL (4.20-5.50); Red Cell Distribution Width 13.3 % (11.0-16.0); White Blood Count 7.2 X10*3/uL (4.8-10.8)
[2025-03-15 07:51] LABS: Alanine Aminotransferase 52 U/L (0-31); Albumin Level 4.2 g/dL (3.5-5.0); Alkaline Phosphatase 77 U/L (39-117); Anion Gap 14 (12-20); Aspartate Amino Transferase 47 U/L (5-31); Bilirubin Total 0.6 mg/dL (0.0-1.0); Blood Urea Nitrogen 13 mg/dL (9-16); Calcium 9.5 mg/dL (8.4-10.2); Carbon Dioxide 27 mmol/L (22-29); Chloride 107 mmol/L (96-108); Cholesterol 249 mg/dL (<200); Estimated Glomerular Filt Rate > 60; Glucose Random 101 mg/dL (60-115); HDL Cholesterol 71 mg/dL (>40); LDL Cholesterol Calculated 163 mg/dL (<100); Potassium 4.5 mmol/L (3.3-5.1); Sodium 143 mmol/L (135-145); Total Protein 7.6 g/dL (6.5-8.0); Triglycerides 77 mg/dL (<150)
[2025-03-15 08:19] LABS: Folate 7.6 ng/mL (> or = 4.0); Vitamin B12 321 pg/mL (200-900)
[2025-03-16 05:44] LABS: Follicle Stimulating Hormone 115.8 mIU/mL; Lutenizing Hormone 49.2 mIU/mL; Prolactin 7.1 ng/mL
== END 2025-03-15 06:54 | disposition home or self-care (01) ==
LOC: HO.LAB 06:53
DX: Z00.00 Encounter for general adult medical examination without abnormal findings (principal); N64.52 Nipple discharge; Z13.220 Encounter for screening for lipoid disorders; Z13.6 Encounter for screening for cardiovascular disorders
CPT/HCPCS: 36415; 80053; 80061; 82306; 82607; 82746; 83001; 83002; 84146; 84443; 85025

== ENCOUNTER 2025-04-05 07:56 | Outpatient (REF) | payer BC, SELFPAY ==
--- OUTSIDE RECORDS SUMMARY | 2025-04-05 07:59 | XMS_ITS | Clinical Summary ---
Author Organization [facility] [place] Address [address] [place] [address] Care Team Providers Care Vice President Pharmacy Name Role Phone Caitlin Ruelas MD Primary Care Provider [phone] Allergies Active Allergy Reactions Criticality Noted Date [...] Name Administration Dates Next Due Hepatitis B (Dwbzuuf-F-Yrvcs , Recombivax HB-Adult) 19yo and older 08/25/2016,03/24/2016,02/26/2016 [...] left ovarian teratoma FLEXIBLE SIGMOIDOSCOPY 09/10/2011 PROCEDURE: MT SIGMOIDOSCOPY FLX DX W/COLLJ SPEC BR/WA IF [...] 4:00 PM EDT Office Visit Adult Medicine [address] [address] Caitlin Ruelas MD [address] [place] [id number] Health Maintenance Due Date Last Done Comments [...] to Health Maintenance Results * Colonoscopy (05/25/2024) [facility] Colonoscopy no interpretation , abstracted Anatomical Region Laterality Modality Other [facility] Provider HEALTH MAINTENANCE Final Result * Annual BMP Blood Test (03/30/2024) [facility] Annual BMP Blood Test abstracted [facility] Provider HEALTH MAINTENANCE Final Result * (ABNORMAL) Lipid panel (03/30/2024) [facility] LDL/HDL Ratio 4 0 - 4 Triglycerides 125 0 - 150 mg/dL Cholesterol 219(A) 0 - 200 mg/dL HDL 55 >=40 mg/dL LDL Cholesterol 139(A) 0 - 100 mg/dL Blood Venous blood specimen / Unknown [facility] Provider LAB BLOOD ORDERABLES Chela l Result * Cervical Cancer Screening: HPV (03/23/2023) [facility] Cervical Cancer Screening: HPV no interpretation , abstracted [facility] Provider HEALTH MAINTENANCE Final Result from Last 3 Months or Most Recently Relevant to Health Maintenance Insurance [facility] Care Teams Vice President Pharmacy Relationship Specialty Start Date End Date Caitlin Ruelas MD [address] [place] [id number] PCP - General Internal Medicine 06/21/22
[2025-04-05 09:59] LABS: HBc Num1 0.07 S/CO (0.00-0.79); HBsAGNum1 0.29 S/CO (0.00-0.99); Hepatitis B Core Antibody Nonreactive (Nonreactive); Hepatitis B Surface Antigen Negative (Negative); ~HepC Num1 0.08 S/CO (0.00-0.79); ~Hepatitis B Surface Antibody REACTIVE (Nonreactive); ~Hepatitis C Antibody Nonreactive (Nonreactive)
== END 2025-04-05 07:57 | disposition home or self-care (01) ==
LOC: HO.LAB 07:56
DX: R79.89 Other specified abnormal findings of blood chemistry (principal)
CPT/HCPCS: 36415; 86704; 86706; 86803; 87340

== ENCOUNTER 2025-04-19 07:44 | Outpatient (REF) | payer BC, SELFPAY ==
--- NOTE | ~2025-04-19 | US_ITS ---
CLINICAL HISTORY: R79.89 - Other specified abnormal findings of blood chemistry US abdomen complete. COMPARISON: None Technique: Real time sonographic imaging, including color-flow imaging, was performed by the bulk picker. Multiple telephone services sales representative static images were saved for review. FINDINGS: The visualized aorta and inferior vena cava are normal caliber. The visualized portions of the pancreas appear normal. The liver has diffusely increased echogenicity. Mildly hypoechoic lesion present within the left lobe of the liver measuring 7.4 x 5.4 x 7.2 cm. Right simple cyst measuring 3.2 x 2.1 x 2.2 cm. Hypoechoic lesion present within the right lobe of the liver measuring 5.4 x 2.8 x 4.7 cm. Main portal vein demonstrates antegrade flow. Liver, right lobe size: 15.9 cm, normal. Cholecystectomy. Common bile duct: 5 mm, normal. Right kidney: Cortical medullary differentiation is maintained. Avascular simple cyst present in the midportion measuring 2.0 x 1.7 x 2.3 cm. No hydronephrosis. Right kidney length: 10.9 cm Left kidney: Cortical medullary differentiation is maintained. No calculus or focal parenchymal abnormality identified. No hydronephrosis. Left kidney length: 11.2 cm The spleen has normal echogenicity. Splenic length: 9.6 cm, normal. No free intraperitoneal fluid identified. IMPRESSION: 1. Indeterminate hepatic masses measuring 7.4 and 5.4 cm present within the left and right lobes of the liver. Recommend comparison with prior imaging and clinical history. If no appropriate history, recommend hepatic protocol MR for further characterization. This document has been electronically signed by: Elgin Sullivan MD on 04/19/2025 15:46:53
--- OUTSIDE RECORDS SUMMARY | 2025-04-19 07:47 | XMS_ITS | Clinical Summary ---
Author Organization [facility] [place] Address [address] [place] [address] Care Team Providers Care Rig Hand Name Role Phone Caitlin Ruelas MD Primary Care Provider [phone] Allergies Active Allergy Reactions Criticality Noted Date [...] Name Administration Dates Next Due Hepatitis B (Phdjpae-W-Dapwo , Recombivax HB-Adult) 19yo and older 08/25/2016,03/24/2016,02/26/2016 [...] left ovarian teratoma FLEXIBLE SIGMOIDOSCOPY 09/10/2011 PROCEDURE: OR SIGMOIDOSCOPY FLX DX W/COLLJ SPEC BR/WA IF [...] 10/30/2024 2:34 PM EST Plan of Treatment Health Maintenance Due Date Last Done Comments [...] to Health Maintenance Results * Colonoscopy (05/25/2024) [facility] Colonoscopy no interpretation , abstracted Anatomical Region Laterality Modality Other [facility] Provider HEALTH MAINTENANCE Final Result * Annual BMP Blood Test (03/30/2024) [facility] Annual BMP Blood Test abstracted [facility] Provider HEALTH MAINTENANCE Final Result * (ABNORMAL) Lipid panel (03/30/2024) [facility] LDL/HDL Ratio 4 0 - 4 Triglycerides 125 0 - 150 mg/dL Cholesterol 219(A) 0 - 200 mg/dL HDL 55 >=40 mg/dL LDL Cholesterol 139(A) 0 - 100 mg/dL Blood Venous blood specimen / Unknown [facility] Provider LAB BLOOD ORDERABLES Chela l Result * Cervical Cancer Screening: HPV (03/23/2023) [facility] Cervical Cancer Screening: HPV no interpretation , abstracted [facility] Provider HEALTH MAINTENANCE Final Result from Last 3 Months or Most Recently Relevant to Health Maintenance Insurance [facility] Care Teams Rig Hand Relationship Specialty Start Date End Date Caitlin Ruelas MD [address] [place] [phone] PCP - General Internal Medicine 06/21/22
== END 2025-04-19 07:45 | disposition home or self-care (01) ==
LOC: HO.US 07:44
DX: Z00.00 Encounter for general adult medical examination without abnormal findings (principal); Z23 Encounter for immunization; R79.89 Other specified abnormal findings of blood chemistry; R00.0 Tachycardia, unspecified; D22.9 Melanocytic nevi, unspecified; L98.9 Disorder of the skin and subcutaneous tissue, unspecified; F32.A Depression, unspecified; I10 Essential (primary) hypertension; N64.52 Nipple discharge; E78.00 Pure hypercholesterolemia, unspecified
CPT/HCPCS: 76700; 90471; 90715

== ENCOUNTER → 2025-04-19 07:46 | Outpatient (BNV) | payer BC, SELFPAY | PROVIDERS: Visit Provider Radiology Diagnostic Radiology | DX: K76.89 Other specified diseases of liver (principal) | CPT/HCPCS: 76700 ==

== ENCOUNTER 2025-04-19 14:24 | Outpatient (AMB) | payer BC, SELFPAY ==
--- NOTE | 2025-04-19 14:31 | A.OFFPC_ITS ---
Vital Signs 04/19/25 14:32 Height 5 ft 2.99 in Weight 186 lb 6 oz BMI 33.0 BP 110/64 Blood Pressure Location Lt brachial Position Sitting Pulse 89 Pulse Source Pulse Oximeter Temp 96.9 F Temp Source Temporal Artery Scan Pulse Oximetry (%) 96 Oxygen Delivery Method Room Air Intake Visit Reasons: 6 Week Annual Exam Intake Note: Patient is here today for a physical. Bottom Stainer Required: No Evaporator Helper: Not Required per policy Accompanied by: Self / Same As Patient Allergies No Known Allergies Allergy (Verified 04/19/25 14:46) Medication List - Last Reconciled 04/19/25 by Liliya Moore PA-C cholecalciferol (vitamin D3) 25 mcg PO DAILY lisinopril 10 mg PO DAILY loratadine (Claritin) 10 mg PO DAILY melatonin 10 mg PO BEDTIME PRN rhubarb root extract (Estroven Complete Menopause Relief) mg PO Tobacco use date assessed: 04/19/25 Dental Screening Dental Screen Date: 03/08/25 HPI 6 Week Annual Exam HPI Details 54-year-old female with past medical his tory of hypertension, depression last seen 02/2025 coming in for annual exam. Presenting with annual wellness exam and management of elevated liver enzymes, hyperlipidemia, and hypertension. Recent episodes of palpitations were described, specifically during warm conditions, with resolution upon cooling. Management of hypertension has been ongoing, with lisinopril reduced and home monitoring indicating generally favorable readings. Concurrent conditions include elevated liver enzymes leading to abdominal ultrasound examination, and historical hyperlipidemia continues to be managed with dietary recommendations. The patient reports right-sided nipple discharge persisting after prior left- sided duct excision. Pap smears: UTD and follows with [facility] title attorney mammogram: UTD last spring 2023 colonoscopy: UTD 2023 [facility] Surgical History H/O breast surgery History of ankle surgery History of left oophorectomy History of hernia surgery History of cholecystectomy History of breast biopsy History of reduction surgery of right breast History of reduction surgery of left breast Family History Other Substance use disorder Social History 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 Cognitive needs: No Hearing needs: No Vision needs: Yes (Glasses) Questionnaire Thrive Questionnaire Date Thrive assessed: 03/01/25 I am a: Patient What is your living situation today?: I have a steady place to live Within the past 12 months, did the food you bought not last and you didn't have the money to get more?: Never true Within the past 12 months, did you worry whether your food would run out before you got money to buy more?: Never true Do you have trouble paying for medicines?: No Do you have trouble getting transportation to medical appointments?: No Do you have trouble paying your heating and electricity bill?: No Do you have trouble taking care of your child, family member or friend?: No Do you have trouble with day-to-day activities such as bathing, preparing meals, shopping, managing finances, etc.?: No Are you currently unemployed and looking for a job?: No Are you interested in more education?: I choose not to answer this question Please select the resources that you would like help with: None Currently or been in a relationship where the following occur: Controlled Emotionally THRIVE Score: 1 ALONDRA-7 AMB Questionnaire ALONDRA-7 Date ALONDRA - 7 assessed: 03/08/25 Source: Developed by Drs. Elio Mathis, Queta De Jesus, Clayton Mc and colleagues, with an educational kinga from [employer] Review of Systems Const Denies body aches, Denies fatigue, Denies fever(s), Denies frequent falls, Denies headache(s) and Denies weakness Eyes Reports no additional complaints and Denies change in vision ENT Denies dysphagia, Denies dizziness, Denies facial pain, Denies headache(s), Denies nasal congestion and Denies odynophagia Card Denies chest pain, Denies syncope, Denies irregular heart rhythm, Denies leg edema, Denies lightheadedness and Denies dyspnea Resp Denies cough and Denies dyspnea GI Denies constipation, Denies dysphagia, Denies dyspepsia, Denies diarrhea, Denies nausea, Denies odynophagia and Denies vomiting Denies urinary frequency, Denies dysuria, Denies urinary hesitancy and Denies urinary urgency Musc Denies back pain and Denies myalgias Skin/Breast Reports system reviewed and no additional complaints, except as documented Neuro Denies dizziness, Denies syncope, Denies frequent falls, Denies headache(s) and Denies weakness Psych Reports no additional complaints Endo Denies fatigue Physical exam (Primary Care) Vital Signs: Last Vital Signs Temp 96.9 F 04/19/25 14:32 Pulse 89 04/19/25 14:32 BP 110/64 04/19/25 14:32 Pulse Ox 96 04/19/25 14:32 Oxygen Delivery Method Room Air 04/19/25 14:32 BMI result Body Mass Index 33.0 Tobacco/Smoking Status: Tobacco use Status Tobacco use date assessed 04/19/25 04/19/25 14:37 Patient Tobacco Use Status Former Tobacco user 04/19/25 14:37 e-Cigarette/Vaping Use Never Used 04/19/25 14:37 Thrive Assessment: Date of Thrive Assessment Date Thrive assessed 03/01/25 04/19/25 14:37 Currently or been in a relationship where the following occur: Controlled Emotionally Const General: cooperative, healthy appearing, comfortable and no acute distress Orientation/consciousness: patient oriented x3 HENMT Head: Yes normocephalic Ears: hearing grossly normal bilaterally, external ears normal, TM's normal bilaterally and EAC's normal General nose exam: Normal external nose present Face and sinus: Yes normal facial exam and Yes sinuses nontender Mouth: Normal oral and palatal mucosa present and tongue normal Throat: Yes posterior oropharynx normal Eyes General: appearance normal, both eyes and all related structures Conjunctivae: conjunctivae normal Pupils: Equal, round and reactive pupils present EOM: EOMs intact bilaterally and No Nystagmus present Neck Neck: Yes normal visual inspection, Yes full ROM and Yes no lymphadenopathy Chest Chest palpation & inspection: normal inspection of the chest Resp Effort & Inspection: normal respiratory effort Auscultation: clear to auscultation bilaterally, no crackles, no rales, no rhonchi, no wheezes and breath sounds present Cardio Rate: regular rate Rhythm: regular rhythm Peripheral pulses: radial pulses present and dorsalis pedis present GI Inspection: Yes normal to inspection and No Abdominal wall edema Palpation (GI): Soft to palpation, not firm and nontender Auscultation: normal bowel sounds Rectal Exam - Female: deferred General: Yes no CVA tenderness Back/Spine/Pelvis Back: no CVA tenderness Skin General skin exam: no rashes or lesions noted Neuro General: patient oriented x3 Cranial nerves: Yes Equal, round and reactive pupils present, Yes Midline tongue present, Yes Ability to bilaterally elevate shoulders present and No Nystagmus present Gait exam (Neuro): Normal gait present Extrem General: Yes normal to inspection, Yes full ROM, No no pedal edema and No edema Psych Speech and movement: Normal speech and movement present Affect: normal affect Insight: Good insight present (Psych) Judgement: Good judgement present (Psych) Immunizations Boostrix Tdap 2.5 Lf unit-8 mcg-5 Lf/0.5 mL intramuscular syringe Performing Provider: Liliya Moore PA-C [facility] Administered by: Kimberly Mcbride CMA on 04/19/25 15:10 Dose Route Admin Location Dispensed Lot Number Expiration Date NDC Pipe Line Maintenance Supervisor 0.5 mL IM Right Deltoid 0.5 mL [id number] 07/13/27 39493-352-46 [employer] VIS Given Date VIS Provided VIS Publication Date 04/19/25 Single Vaccine 24 Eligibility Eligibility Date Funding Source Not [facility] Eligible 04/19/25 Private Coding Level of Care Code Est Pt Prev Care 40-64y(79519) Diagnoses Annual physical exam Z00.00 Elevated LFTs R79.89 Tachycardia R00.0 Atypical nevi D22.9 Skin lesion L98.9 Depression F32.A Hypertension I10 Nipple discharge N64.52 Hypercholesterolemia E78.00 Assessment & Plan Assessment & Plan (1) Annual physical exam: Code(s): Z00.00 - Encounter for general adult medical examination without abnormal find ings Category: Medical Plan: Patient is up-to-date on all recommended routine screenings and vaccinations for her age. Blood work is up-to-date and has been reviewed with the patient today. Healthy diet and regular exercise is encouraged. Follow up in 3 months to recheck cholesterol. (2) Elevated LFTs: Code(s): R79.89 - Other specified abnormal findings of blood chemistry Category: Medical Plan: Recently completed abdominal US awaiting results at this time. (3) Tachycardia: Code(s): R00.0 - Tachycardia, unspecified Category: Medical Plan: Patient having intermittent reported episodes of tachycardia that are picked up by her apple watch. I did discuss with patient she should be checking the pulse in his secondary way using pulse ox or manually checking pulse to verify tachycardia. She has had Holter monitor in the past which has been normal. Continue to monitor symptoms at this time. Her episodes of tachycardia are asymptomatic and denies any recent episodes with the exception of one episode yesterday in the heat. (4) Atypical nevi: Code(s): D22.9 - Melanocytic nevi, unspecified Category: Medical Plan: Patient has multiple atypical nevi that she would like evaluated. Referral was placed to Dermatology at last visit. (5) Skin lesion: Code(s): L98.9 - Disorder of the skin and subcutaneous tissue, unspecified Category: Medical Plan: Patient has a multiple skin lesions on her scalp and face referral was placed to Dermatology for further evaluation. (6) Depression: Code(s): F32.A - Depression, unspecified Category: Medical Plan: Patient having symptoms of depression declining medical management at this time and referral was placed to counseling and patient had intake coming up. (7) Hypertension: Code(s): I10 - Essential (primary) hypertension Category: Medical Plan: Continue on current blood pressure medication. Avoid salt intake and encourage healthy diet and regular exercise. Consider decrease pending home logs. (8) Nipple discharge: Code(s): N64.52 - Nipple discharge Category: Medical Plan: Patient complaining of right nipple discharge. She does have a history of left nipple discharge resulting in a duct removal. She does follow with [facility] [place] and has had an ultrasound, mammogram MRI of the right breast which have all been normal. She is unsure if blood work has ever been conducted for this issue. She is following up with the breast center in a few months. Advised patient to reach out to breast center to confirm appointment. (9) Hypercholesterolemia: Code(s): E78.00 - Pure hypercholesterolemia, unspecified Category: Medical Plan: Avoid foods that are high in cholesterol such as red meat, fried foods, eggs and baked goods. Triglyceride goal of less than 150 and LDL goal of less than 130. Repeat labs and follow up in 3 months. Plan The patient will continue her current medication regimen for hypertension while undertaking a two-week home blood pressure monitoring plan, promptly reporting results. Await the results of the liver ultrasound to further assess hepatic function and decide upon a future course of action. Non-pharmacological management of hyperlipidemia emphasized with dietary alterations aimed at reducing cholesterol levels. The patient is encouraged to engage with previous healthcare providers to address persistent right-sided nipple discharge despite past frustrations. Emphasize the importance of adhering to preventive health screenings including mammograms and plan to follow up in three months with repeated blood work focusing on liver enzymes and cholesterol levels. Seeks counseling as a beneficial method towards stress management. Provided tetanus vaccine to maintain current immunization status. This note was constructed using voice recognition software. While every effort has been made to ensure accuracy and plug and mold finisher, still areas may have been included sometimes these areas may affect the content or meeting of the given symptoms. Total time spent caring for the patient today was 30 minutes. This includes time spent before the visit reviewing the chart, time spent during the visit, and time spent after the visit and documentation. Patient was informed and verbally consented to the use of an ambient scribe for clinic note documentation during this visit. Orders: Orders Lipid Panel 3 Months E78.00 - Pure hypercholesterolemia, unspecified TDaP Immunization Today Z23 - Encounter for immunization Liver Panel 3 Months R79.89 - Other specified abnormal findings of blood chemistry
[2025-04-19 14:32] VITALS: BP 110/64; PULSE 89; TEMP 36.1; O2SAT 96; BMI 33.0
== END 2025-04-19 15:17 | disposition home or self-care (01) ==
LOC: HO.HMCH 14:25
DX: Z00.00 Encounter for general adult medical examination without abnormal findings (principal); R79.89 Other specified abnormal findings of blood chemistry; R00.0 Tachycardia, unspecified; D22.9 Melanocytic nevi, unspecified; L98.9 Disorder of the skin and subcutaneous tissue, unspecified; F32.A Depression, unspecified; I10 Essential (primary) hypertension; N64.52 Nipple discharge; E78.00 Pure hypercholesterolemia, unspecified; Z23 Encounter for immunization

== ENCOUNTER → 2025-04-29 09:01 | Outpatient (BNV) | payer BC, SELFPAY | PROVIDERS: Visit Provider Radiology Diagnostic Radiology | DX: K76.89 Other specified diseases of liver (principal); N28.1 Cyst of kidney, acquired | CPT/HCPCS: 74183 ==

== ENCOUNTER 2025-04-29 09:11 | Outpatient (REF) | payer BC, SELFPAY ==
--- NOTE | ~2025-04-29 | MR_ITS ---
EXAMINATION: MR ABDOMEN WITHOUT AND WITH CONTRAST CLINICAL INFORMATION: Hepatomegaly. COMPARISON: CT dated April 19, 2025, reporting a 7.4 and 5.4 cm hepatic lesions. TECHNIQUE: MR abdomen was performed without and with use of 9 mL intravenous (Gadavist) gadolinium contrast. Postcontrast images are performed in multiphase dynamic sequences. Imaging was performed in 3 planes. No reported immediate complications. FINDINGS: LUNG BASES: No enhancing mass. LIVER, GALLBLADDER, AND BILIARY TREE: Liver measures 17 cm. There is a 7 x 8 x 8 cm lobulated well-defined homogeneously enhancing, nonrestricted diffusion mass/lesion/signal abnormality involving mostly the left hepatic lobe with delayed enhancing center. There is a 5 x 4 x 7 cm lobulated and well-defined homogeneously enhancing, nonrestricted diffusion mass/lesion/signal abnormality in the posterior dome right hepatic lobe with delayed enhancing center. There is a 3 x 2 x 3 cm lobulated and seen septated nonenhancing fluid signal characteristic lesion in the peripheral aspect of the right hepatic lobe. There is a 0.6 x 0.4 x 0.4 cm nonenhancing fluid signal characteristic at the gallbladder fossa region. The main portal veins, hepatic veins and intrahepatic portion of the IVC are patent.. Gallbladder is absent/cholecystectomy. Common bile duct measures 6 cm. No intraluminal signal abnormality. No intrahepatic or extrahepatic biliary ductal dilatation. PANCREAS: No focal mass. No peripancreatic fluid collection. No main pancreatic duct measures 2 mm. SPLEEN: 9 cm. No focal lesion. ADRENAL GLANDS: No nodular lesion. KIDNEYS AND URETERS: Normal enhancement pattern. No gross renal mass. There is a 3 cm well-defined fluid signal characteristic lesion at the corticomedullary junction upper pole right kidney. There is a 0.2 cm fluid signal characteristic lesion in the upper pole right kidney. GASTROINTESTINAL TRACT: No intestinal obstruction pattern. No gross intestinal wall thickening. ABDOMINAL WALL: Small fat-containing umbilical hernia. LYMPH NODES: Nonspecific mildly prominent mesenteric and retroperitoneal lymph nodes. VASCULAR: No aneurysm or dissection, abdominal aorta. OSSEOUS STRUCTURES: Mild multilevel thoracolumbar spondylosis. MR/MR abdomen wo/w con IMPRESSION: Consider focal nodular hyperplasia, left hepatic lobe and right hepatic lobe. Septated simple cyst, right hepatic lobe. Bosniak type I cyst, right kidney. Hepatomegaly, mild. Electronically signed by: Vito Mcneil MD 04/29/2025 10:18 AM EDT
--- OUTSIDE RECORDS SUMMARY | 2025-04-29 09:47 | XMS_ITS | Clinical Summary ---
Author Organization [facility] [place] Address [address] [place] [address] Care Team Providers Care Stock Analyst Name Role Phone Caitlin Ruelas MD Primary Care Provider [phone] Allergies Active Allergy Reactions Criticality Noted Date [...] Name Administration Dates Next Due Hepatitis B (Zzwdugs-N-Ochkl , Recombivax HB-Adult) 19yo and older 08/25/2016,03/24/2016,02/26/2016 [...] left ovarian teratoma FLEXIBLE SIGMOIDOSCOPY 09/10/2011 PROCEDURE: [place] SIGMOIDOSCOPY FLX DX W/COLLJ SPEC BR/WA IF [...] to Health Maintenance Results * Colonoscopy (05/25/2024) [facility] Colonoscopy no interpretation , abstracted Anatomical Region Laterality Modality Other [facility] Provider HEALTH MAINTENANCE Final Result * Annual BMP Blood Test (03/30/2024) [facility] Annual BMP Blood Test abstracted [facility] Provider HEALTH MAINTENANCE Final Result * (ABNORMAL) Lipid panel (03/30/2024) [facility] LDL/HDL Ratio 4 0 - 4 Triglycerides 125 0 - 150 mg/dL Cholesterol 219(A) 0 - 200 mg/dL HDL 55 >=40 mg/dL LDL Cholesterol 139(A) 0 - 100 mg/dL Blood Venous blood specimen / Unknown [facility] Provider LAB BLOOD ORDERABLES Chela l Result * Cervical Cancer Screening: HPV (03/23/2023) [facility] Cervical Cancer Screening: HPV no interpretation , abstracted [facility] Provider HEALTH MAINTENANCE Final Result from Last 3 Months or Most Recently Relevant to Health Maintenance Insurance [facility] Care Teams Stock Analyst Relationship Specialty Start Date End Date Caitlin Ruelas MD [address] [place] [phone] PCP - General Internal Medicine 06/21/22
[2025-04-29] MEDS: gadobutroL 10 ML VIAL IVPUSH (09:59)
== END 2025-04-29 09:12 | disposition home or self-care (01) ==
LOC: HO.MRI 09:11
DX: R16.0 Hepatomegaly, not elsewhere classified (principal)
CPT/HCPCS: 74183; A9585

== ENCOUNTER 2025-05-10 09:27 | Outpatient (AMB) | payer BC, SELFPAY ==
--- NOTE | 2025-05-10 09:32 | A.OFFVIS_ITS ---
Vital Signs 05/10/25 09:33 Height 5 ft 2.9 in Weight 185 lb BMI 32.9 BP 106/69 Blood Pressure Location Lt brachial Position Sitting Pulse 90 Pulse Oximetry (%) 97 Oxygen Delivery Method Room Air Intake Visit Reasons: Hepatomegaly Intake Note: Patient new consult for Hepatomegaly. Patient cc: daily RUQ pain, poor appetite and tiredness all of the time. Denies ay other GI issues. Protozoology Teacher Required: No Accompanied by: Self / Same As Patient Allergies No Known Allergies Allergy (Verified 05/10/25 09:31) Medication List - Last Reconciled 05/10/25 by Tatianna Osborn CNP cholecalciferol (vitamin D3) 25 mcg PO DAILY lisinopril 10 mg PO DAILY loratadine (Claritin) 10 mg PO DAILY melatonin 10 mg PO BEDTIME PRN rhubarb root extract (Estroven Complete Menopause Relief) mg PO HPI HPI Hepatomegaly: Details: Patient is a 54-year-old female with PMH of hyperlipidemia. Referred by PCP for further evaluation of transaminitis Symptoms began about 6 to 8 months ago and include a decreased appetite, persistent fatigue, and intermittent right upper quadrant pain that is described as an achy and sometimes burning sensation. Occasionally, there are sharper pains at the bottom of the ribs. She also experiences episodes of nausea and vomiting, with the last vomiting episode occurring a month ago. The severity of symptoms varies, but right upper quadrant pain is constant and rated as moderate. Patient denies: fever/chills, pyrosis, regurgitation,dysphasia, unintentional wt loss or melena/hematochezia. Shares she has taken the following supplements: -Estroven oral one tablet daily X one year -Red yeast rice oral for a month (3-4 months ago) -Skullcap oral (more than a year ago for a short period) -Chromium picolinate oral (stopped 2 months ago after 3-4 months of use) Social History Alcohol: Consumes alcohol once or twice a year Tobacco: Quit 30 years ago Drug Use: Uses edibles containing marijuana about twice a week to aid sleep Occupation: [employer] at the [employer], high-stress environment - family hx as below -denies personal hx of CA - significant cardiopulmonary history -tolerated anesthesia in the past without difficulty-slow to recover [facility] Medical History (Updated 05/10/25 @ 10:02 by KRISTOPHER Wu Transaminitis Surgical History (Updated 05/10/25 @ 09:42 by Laina Munoz) History of esophagogastroduodenoscopy (EGD) Hx of colonoscopy H/O breast surgery History of ankle surgery History of left oophorectomy History of hernia surgery History of cholecystectomy History of breast biopsy History of reduction surgery of right breast History of reduction surgery of left breast Family History Other Substance use disorder Social History [facility] Alcohol intake: current Alcohol intake frequency: holidays/special occasions only Patient Tobacco Use Status: Former Tobacco user Years Smoked: 30 years ago e-Cigarette/Vaping Use: Never Used Second Hand Smoke Exposure: Yes service: No Current occupational status: employed 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 Cognitive needs: No Hearing needs: No Vision needs: Yes (Glasses) Review of Systems Const Reports as per HPI ENT Reports as per HPI Card Reports as per HPI Resp Reports as per HPI GI Reports as per HPI Reports as per HPI Physical Exam Vital Signs: Last Vital Signs Pulse 90 05/10/25 09:33 BP 106/69 05/10/25 09:33 Pulse Ox 97 05/10/25 09:33 Oxygen Delivery Method Room Air 05/10/25 09:33 BMI result Body Mass Index 32.9 Const General: healthy appearing, no acute distress and well developed Nutritional Appearance: well nourished Orientation/consciousness: patient oriented x3 HEENT Head: Yes normal to inspection, Yes normocephalic and Yes atraumatic Face and sinus: Yes normal facial exam Eyes General: appearance normal, both eyes and all related structures Neck Neck: Yes normal visual inspection Resp Effort & Inspection: normal respiratory effort, able to speak in complete sentences, no tracheal deviation and symmetric chest movement Auscultation: clear to auscultation bilaterally Cardio Jugular venous distension: no JVD Rate: regular rate Rhythm: regular rhythm Heart sounds: S1 normal heart sound present, S2 normal heart sound present, no gallops and no murmurs GI Inspection: Yes normal to inspection, No distended and Yes obesity Palpation (GI): Soft to palpation, not firm and nontender Auscultation: normal bowel sounds Neuro General: patient oriented x3 Gait exam (Neuro): Normal gait present Psych Appearance: grossly normal Mental Status: mental status grossly normal Speech and movement: Normal speech and movement present Affect: normal affect Attitude: cooperative Thought process: Normal thought process present Thought content: Normal thought content present Insight: Good insight present (Psych) Judgement: Good judgement present (Psych) Results Reviewed Results Reviewed: Date of Service: 04/29/25 Procedure(s): MR abdomen wo/w con Accession Number(s): [id number] cc: Liliya Moore PA-C~ EXAMINATION: MR ABDOMEN WITHOUT AND WITH CONTRAST CLINICAL INFORMATION: Hepatomegaly. COMPARISON: CT dated April 19, 2025, reporting a 7.4 and 5.4 cm hepatic lesions. TECHNIQUE: MR abdomen was performed without and with use of 9 mL intravenous (Gadavist) gadolinium contrast. Postcontrast images are performed in multiphase dynamic sequences. Imaging was performed in 3 planes. No reported immediate complications. FINDINGS: LUNG BASES: No enhancing mass. LIVER, GALLBLADDER, AND BILIARY TREE: Liver measures 17 cm. There is a 7 x 8 x 8 cm lobulated well-defined homogeneously enhancing, nonrestricted diffusion mass/lesion/signal abnormality involving mostly the left hepatic lobe with delayed enhancing center. There is a 5 x 4 x 7 cm lobulated and well-defined homogeneously enhancing, nonrestricted diffusion mass/lesion/signal abnormality in the posterior dome right hepatic lobe with delayed enhancing center. There is a 3 x 2 x 3 cm lobulated and seen septated nonenhancing fluid signal characteristic lesion in the peripheral aspect of the right hepatic lobe. There is a 0.6 x 0.4 x 0.4 cm nonenhancing fluid signal characteristic at the gallbladder fossa region. The main portal veins, hepatic veins and intrahepatic portion of the IVC are patent.. Gallbladder is absent/cholecystectomy. Common bile duct measures 6 cm. No intraluminal signal abnormality. No intrahepatic or extrahepatic biliary ductal dilatation. PANCREAS: No focal mass. No peripancreatic fluid collection. No main pancreatic duct measures 2 mm. SPLEEN: 9 cm. No focal lesion. ADRENAL GLANDS: No nodular lesion. KIDNEYS AND URETERS: Normal enhancement pattern. No gross renal mass. There is a 3 cm well-defined fluid signal characteristic lesion at the corticomedullary junction upper pole right kidney. There is a 0.2 cm fluid signal characteristic lesion in the upper pole right kidney. GASTROINTESTINAL TRACT: No intestinal obstruction pattern. No gross intestinal wall thickening. ABDOMINAL WALL: Small fat-containing umbilical hernia. LYMPH NODES: Nonspecific mildly prominent mesenteric and retroperitoneal lymph nodes. VASCULAR: No aneurysm or dissection, abdominal aorta. OSSEOUS STRUCTURES: Mild multilevel thoracolumbar spondylosis. MR/MR abdomen wo/w con IMPRESSION: Consider focal nodular hyperplasia, left hepatic lobe and right hepatic lobe. Septated simple cyst, right hepatic lobe. Bosniak type I cyst, right kidney. Hepatomegaly, mild. Ordering Physician: Liliya Moore PA-C Date of Service: 04/19/25 Procedure(s): US abdomen complete Accession Number(s): [id number] cc: Liliya Moore PA-C~ CLINICAL HISTORY: R79.89 - Other specified abnormal findings of blood chemistry US abdomen complete. COMPARISON: None Technique: Real time sonographic imaging, including color-flow imaging, was performed by the patient access representative. Multiple treasury representative static images were saved for review. FINDINGS: The visualized aorta and inferior vena cava are normal caliber. The visualized portions of the pancreas appear normal. The liver has diffusely increased echogenicity. Mildly hypoechoic lesion present within the left lobe of the liver measuring 7.4 x 5.4 x 7.2 cm. Right simple cyst measuring 3.2 x 2.1 x 2.2 cm. Hypoechoic lesion present within the right lobe of the liver measuring 5.4 x 2.8 x 4.7 cm. Main portal vein demonstrates antegrade flow. Liver, right lobe size: 15.9 cm, normal. Cholecystectomy. Common bile duct: 5 mm, normal. Right kidney: Cortical medullary differentiation is maintained. Avascular simple cyst present in the midportion measuring 2.0 x 1.7 x 2.3 cm. No hydronephrosis. Right kidney length: 10.9 cm Left kidney: Cortical medullary differentiation is maintained. No calculus or focal parenchymal abnormality identified. No hydronephrosis. Left kidney length: 11.2 cm The spleen has normal echogenicity. Splenic length: 9.6 cm, normal. No free intraperitoneal fluid identified. IMPRESSION: 1. Indeterminate hepatic masses measuring 7.4 and 5.4 cm present within the left and right lobes of the liver. Recommend comparison with prior imaging and clinical history. If no appropriate history, recommend hepatic protocol MR for further characterization. Assessment & Plan Assessment & Plan (1) Liver mass: Code(s): R16.0 - Hepatomegaly, not elsewhere classified Category: Medical Plan: Suspected focal nodular hyperplasia to left and right hepatic lobes on 04/29/25 MRI (see above), also including a right hepatic lobe cyst. Will need to confirm the benign nature of liver lesions and further work up transaminitis Additional Tests: Fasting blood work including liver function tests, HIV screening, clotting factors, autoimmune markers, iron stores analysis and AFP. Medications: Patient has a history of supplement use with potential hepatotoxicity. Skullcap, a known contributor to hepatic injury, was discontinued approximately one year ago. Rhubarb, an active ingredient in daily Estroven, has mixed evidence regarding hepatic impact; all other supplements have been discontinued. impact from supplements. Lifestyle Modifications: Advise on a balanced diet, regular exercise, and stress reduction techniques. Plan Follow-up in 3 weeks or sooner as needed Time: I spent a total of 45 minutes on the date of encounter which includes: Preparing to see the patient (reviewed previous documentation, test results and medical history) Performing a medically appropriate exam and/or evaluation Ordering medications, tests, and procedures Documenting clinical information in the health record Orders: Orders Ferritin Today R74.01 - Elevation of levels of liver transaminase levels Liver Fibrosis Pnl Today R74.01 - Elevation of levels of liver transaminase levels Mitochondrial Antibody Today R74.01 - Elevation of levels of liver transaminase levels Alpha Fetoprotein Today R16.0 - Hepatomegaly, not elsewhere classified, R74.01 - Elevation of levels of liver transaminase levels LILI Reflex Titer and Pattern Today R74.01 - Elevation of levels of liver transaminase levels HIV Ab/Ag Today R74.01 - Elevation of levels of liver transaminase levels Immunoglobulins,IgG IgA IgM Today R74.01 - Elevation of levels of liver transaminase levels Prothrombin Time INR Today R74.01 - Elevation of levels of liver transaminase levels Smooth Muscle Antibody Today R74.01 - Elevation of levels of liver transaminase levels Comprehensive [place]. Panel Fast Today R74.01 - Elevation of levels of liver transaminase levels C Reactive Protein Today R74.01 - Elevation of levels of liver transaminase levels Lipase Today R74.01 - Elevation of levels of liver transaminase levels Coding Level of Care Code New Pt New Pt Level 4 (40710) Patient Type New Diagnoses Liver mass R16.0
[2025-05-10 09:33] VITALS: BP 106/69; PULSE 90; O2SAT 97; BMI 32.9
--- OUTSIDE RECORDS SUMMARY | 2025-05-10 09:51 | XMS_ITS | Clinical Summary ---
Author Organization [facility] [place] Address [address] [place] [address] Care Team Providers Care Allocation Analyst Name Role Phone Caitlin Ruelas MD Primary Care Provider [phone] Allergies Active Allergy Reactions Criticality Noted Date [...] Name Administration Dates Next Due Hepatitis B (Jhtgqds-J-Ultaz , Recombivax HB-Adult) 19yo and older 08/25/2016,03/24/2016,02/26/2016 [...] left ovarian teratoma FLEXIBLE SIGMOIDOSCOPY 09/10/2011 PROCEDURE: ID SIGMOIDOSCOPY FLX DX W/COLLJ SPEC BR/WA IF [...] 82 10/30/2024 2:34 PM EST Temperature 36.4 C (97.5 F) 10/30/2024 2:34 PM EST Respiratory Rate 14 10/30/2024 2:34 PM EST [...] Health Maintenance Results * Colonoscopy (05/25/2024) [facility] Colonoscopy no interpretation , abstracted Anatomical Region Laterality Modality Other [facility] Provider HEALTH MAINTENANCE Final Result * Annual BMP Blood Test (03/30/2024) [facility] Annual BMP Blood Test abstracted [facility] Provider HEALTH MAINTENANCE Final Result * (ABNORMAL) Lipid panel (03/30/2024) [facility] LDL/HDL Ratio 4 0 - 4 Triglycerides 125 0 - 150 mg/dL Cholesterol 219(A) 0 - 200 mg/dL HDL 55 >=40 mg/dL LDL Cholesterol 139(A) 0 - 100 mg/dL Blood Venous blood specimen / Unknown [facility] Provider LAB BLOOD ORDERABLES Chela l Result * Cervical Cancer Screening: HPV (03/23/2023) [facility] Cervical Cancer Screening: HPV no interpretation , abstracted [facility] Provider HEALTH MAINTENANCE Final Result from Last 3 Months or Most Recently Relevant to Health Maintenance Insurance [facility] Care Teams Allocation Analyst Relationship Specialty Start Date End Date Caitlin Ruelas MD [address] [place] [id number] PCP - General Internal Medicine 06/21/22
== END 2025-05-10 10:36 | disposition home or self-care (01) ==
LOC: HO.HGI 09:28
PROVIDERS: Visit Provider Nurse Practitioner Family
DX: R16.0 Hepatomegaly, not elsewhere classified (principal)
CPT/HCPCS: 99204

== ENCOUNTER 2025-05-11 07:23 | Outpatient (REF) | payer BC, SELFPAY ==
[2025-05-11 08:35] LABS: Prothrombin Time 11.1 SEC (10.9-12.4)
[2025-05-11 09:00] LABS: Alanine Aminotransferase 45 U/L (0-31); Albumin Level 4.2 g/dL (3.5-5.0); Alkaline Phosphatase 75 U/L (39-117); Anion Gap 13 (12-20); Aspartate Amino Transferase 39 U/L (5-31); Bilirubin Total 0.9 mg/dL (0.0-1.0); Blood Urea Nitrogen 11 mg/dL (9-16); C Reactive Protein 0.33 mg/dL (< or = 0.50); Calcium 9.2 mg/dL (8.4-10.2); Carbon Dioxide 27 mmol/L (22-29); Chloride 108 mmol/L (96-108); Estimated Glomerular Filt Rate > 60; Glucose Fasting 97 mg/dL (60-99); Glucose Random 98 mg/dL (60-115); Lipase 60 U/L (8-78); Potassium 4.5 mmol/L (3.3-5.1); Sodium 143 mmol/L (135-145); Total Protein 7.3 g/dL (6.5-8.0)
[2025-05-11 09:22] LABS: Ferritin 218 ng/mL (10-250)
[2025-05-11 09:42] LABS: HIV AB/AG Nonreactive (Nonreactive); HIV Num 1 0.06 S/CO (0.00-0.99)
[2025-05-13 12:04] LABS: IgA 553 mg/dL (47-310); IgG 1196 mg/dL (600-1640); IgM 67 mg/dL (50-300)
[2025-05-14 11:23] LABS: Anti Nuclear Antibody Screen NEGATIVE (NEGATIVE)
[2025-05-15 11:55] LABS: Mitochondrial Antibodies NEGATIVE (NEGATIVE)
[2025-05-15 12:49] LABS: Alpha Fetoprotein 1.6 ng/mL
[2025-05-16 00:13] LABS: Smooth Muscle Antibody <20 U (<20)
[2025-05-22 02:04] LABS: FIB-ALT 33 U/L (6-29); FIB-Alpha-2-Macroglobulin 128 mg/dL (106-279); FIB-Apolipoprotein A1 176 mg/dL (101-198); FIB-GGT 156 U/L (3-70); FIB-Haptoglobin 164 mg/dL (43-212); FIB-Total Bilirubin 0.7 mg/dL (0.2-1.2); Liver Fibrosis Score 0.14; Liver Fibrosis Stage F0; Nec Inflam Act Grade A0; Nec Inflam Act Score 0.14
== END 2025-05-11 07:24 | disposition home or self-care (01) ==
LOC: HO.LAB 07:23
PROVIDERS: Visit Provider Nurse Practitioner Family
DX: R74.01 Elevation of levels of liver transaminase levels (principal); R16.0 Hepatomegaly, not elsewhere classified
CPT/HCPCS: 36415; 80053; 81596; 82105; 82728; 82784; 83690; 85610; 86015; 86038; 86140; 86381; 87389

== ENCOUNTER 2025-06-05 07:44 | Outpatient (AMB) | payer BC, SELFPAY ==
--- OUTSIDE RECORDS SUMMARY | 2025-06-05 07:46 | XMS_ITS | Clinical Summary ---
Author Organization [facility] [place] Address [address] [place] [address] Care Team Providers Care Delimer Name Role Phone Caitlin Ruelas MD Primary Care Provider [phone] Allergies Active Allergy Reactions Criticality Noted Date [...] Name Administration Dates Next Due Hepatitis B (Zcqgmhl-Q-Dovov , Recombivax HB-Adult) 19yo and older 08/25/2016,03/24/2016,02/26/2016 [...] left ovarian teratoma FLEXIBLE SIGMOIDOSCOPY 09/10/2011 PROCEDURE: [place] SIGMOIDOSCOPY FLX DX W/COLLJ SPEC BR/WA IF [...] Last Done Comments Breast Cancer Screening 1970 HIV Screening 09/12/2020 Hepatitis C Screening 09/12/2020 Social Influencers of Health Screening 09/12/2020 Pneumococcal Vaccine: 50+ Years (1 of 1 - PCV) 2022 Zoster Vaccines (1 of 2) 2022 COVID-19 Vaccine (5 - season) 2024 09/29/2022, 10/30/2021, 02/26/2021, Additional history exists DTaP,Tdap,and Td Vaccines (3 - Td or Tdap) 09/25/2024 09/25/2014, 07/10/2007 Depression Screening 11/14/2024 Hypertension/CHF/CAD Annual BMP Blood Test 03/30/2025 03/30/2024, 03/30/2024 Influenza Vaccine (#1) 2025 , 08/16/2023, 09/15/2021, Additional history exists Cervical Cancer Screening: HPV 03/23/2028 03/23/2023 Cholesterol Screening (Lipid Panel) 03/30/2029 03/30/2024, 03/30/2024 Colorectal Cancer Screening: Colonoscopy 05/25/2034 05/25/2024 MMR Vaccines Aged Out 03/24/2016, 02/26/2016 No lo nger eligible based on patient's age to complete this topic Hepatitis B Vaccines Completed 08/25/2016, 03/24/2016, 02/26/2016 HIB Vaccines Aged Out No longer eligi [...] Procedure Name Priority Date/Time Associated Diagnosis Comments HM COLONOSCOPY Routine 05/25/2024 ANNUAL BMP BLOOD TEST Routine 03/30/2024 LIPID PANEL Routine 03/30/2024 HPV Routine 03/23/2023 from Last 3 Months or Most Recently Relevant to Health Maintenance Results * Colonoscopy (05/25/2024) [facility] Colonoscopy no interpretation , abstracted Anatomical Region Laterality Modality Other [facility] Provider HEALTH MAINTENANCE Final Result * Annual BMP Blood Test (03/30/2024) [facility] Annual BMP Blood Test abstracted [facility] HEALTH MAINTENANCE Final Result * (ABNORMAL) Lipid panel (03/30/2024) [facility] LDL/HDL Ratio 4 0 - 4 Triglycerides 125 0 - 150 mg/dL Cholesterol 219(A) 0 - 200 mg/dL HDL 55 >=40 mg/dL LDL Cholesterol 139(A) 0 - 100 mg/dL Blood Venous blood specimen / Unknown Result [facility] LAB BLOOD ORDERABLES Chela l Result * Cervical Cancer Screening: HPV (03/23/2023) [facility] Cervical Cancer Screening: HPV no interpretation , abstracted [facility] Provider HEALTH MAINTENANCE Final Result from Last 3 Months or Most Recently Relevant to Health Maintenance Insurance [facility] Care Teams Delimer Relationship Specialty Start Date End Date Caitlin Ruelas MD [address] [place] [id number] PCP - General Internal Medicine 06/21/22
--- NOTE | 2025-06-05 07:55 | A.OFFVIS_ITS ---
Vital Signs 06/05/25 08:00 Height 5 ft 2.9 in Weight 185 lb BMI 32.9 BP 109/73 Blood Pressure Location Lt brachial Position Sitting Pulse 70 Pulse Oximetry (%) 99 Oxygen Delivery Method Room Air Intake Visit Reasons: 3 wk Intake Note: Patient follow up for liver mass and lab results Patient denies any GI issues for today visit. Director Of Consulting Services Required: No Accompanied by: Self / Same As Patient Allergies No Known Allergies Allergy (Verified 06/05/25 07:56) HPI HPI 3 wk: Details: Patient is a 54-year-old female with PMH of hyperlipidem and vitamin D deficiency. Bessie is being followed for two hepatic lesions identified on MRI: one in the left lobe (approximate size of a grapefruit) and one in the right lobe (approximate size of a large apple). A simple cyst was also noted on the right lobe, and a benign cyst was found on the right kidney. 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 The patient is concerned about elevated liver enzymes, particularly GGT (156; ref 3?70) and IgA. Symptoms include persistent fatigue (not fully explained by work schedule changes), decreased appetite (noted over the past year, with reduced meal size and frequency), intermittent right upper quadrant pain, and episodic nausea without vomiting. Weight has trended down from 193 lbs (Sep 2024) to 185 lbs as of today, though changes were not intentional. Vitamin D was low (19 ng/mL) and supplementation was started by PCP. Family history is notable for diabetes. Patient reports she is current on colonoscopy (last at [facility], 1?2 small non- cancerous polyps removed, next due in 7 years per prior recommendation). Mammogram is due; patient typically obtains annually but last was delayed due to scheduling issues with breast specialist. History of left breast biopsies and duct excision, all benign. Cervical cancer screening status unclear; last Pap within past 5 years, history of two abnormal Paps with colposcopy, most recent follow-up benign. No history of cancer. [facility] Medical History (Updated 06/05/25 @ 09:13 by Tatianna Osborn CNP) Fatigue Transaminitis Surgical History History of esophagogastroduodenoscopy (EGD) Hx of colonoscopy H/O breast surgery History of ankle surgery History of left oophorectomy History of hernia surgery History of cholecystectomy History of breast biopsy History of reduction surgery of right breast History of reduction surgery of left breast Family History Other Substance use disorder Social History Housing: [facility] Alcohol intake: current Alcohol intake frequency: holidays/special occasions only Patient Tobacco Use Status: Former Tobacco user Years Smoked: 30 years ago e-Cigarette/Vaping Use: Never Used Second Hand Smoke Exposure: Yes service: No Current occupational status: employed 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 Cognitive needs: No Hearing needs: No Vision needs: Yes (Glasses) Review of Systems Const Reports as per HPI ENT Reports as per HPI Card Reports as per HPI Resp Reports as per HPI GI Reports as per HPI Reports as per HPI Physical Exam Vital Signs: Last Vital Signs Pulse 70 06/05/25 08:00 BP 109/73 06/05/25 08:00 Pulse Ox 99 06/05/25 08:00 Oxygen Delivery Method Room Air 06/05/25 08:00 BMI result Body Mass Index 32.9 Const General: healthy appearing, no acute distress and well developed Nutritional Appearance: average body habitus Orientation/consciousness: patient oriented x3 HEENT Head: Yes normal to inspection, Yes normocephalic and Yes atraumatic Face and sinus: Yes normal facial exam Eyes General: appearance normal, both eyes and all related structures Neck Neck: Yes normal visual inspection Resp Effort & Inspection: normal respiratory effort, able to speak in complete sentences, no tracheal deviation and symmetric chest movement Auscultation: clear to auscultation bilaterally Cardio Jugular venous distension: no JVD Rate: regular rate Rhythm: regular rhythm Heart sounds: S1 normal heart sound present, S2 normal heart sound present, no gallops and no murmurs GI Inspection: Yes normal to inspection, No distended and Yes obesity Palpation (GI): Soft to palpation, not firm, nontender and No hepatosplenomegaly present Auscultation: normal bowel sounds Neuro General: patient oriented x3 Gait exam (Neuro): Normal gait present Psych Appearance: grossly normal Mental Status: mental status grossly normal Speech and movement: Normal speech and movement present Affect: normal affect Attitude: cooperative Thought process: Normal thought process present Thought content: Normal thought content present Insight: Good insight present (Psych) Judgement: Good judgement present (Psych) Results Reviewed Results Reviewed: Laboratory Tests 03/15/25 04/05/25 05/11/25 07:03 08:16 07:43 Ferritin 218 Total Bilirubin 0.9 AST 39 H ALT 45 H Alkaline Phosphatase 75 Liver GGT 156 H Liver Total Bilirubin 0.7 Liver Apolipoprotein A1 176 Liver Fibrosis ALT 33 H Liver g-6-[id number] 128 Liver Haptoglobin 164 Liver Fibrosis Score 0.14 Liver Fibrosis Interp SEE NOTE Liver Fibrosis Comment SEE NOTE Liver Fibrosis Stage F0 Necroinflammator Score 0.14 Necroinflammator Grade A0 C-Reactive Protein 0.33 Total Protein 7.3 Albumin 4.2 Lipase 60 Mitochondrial AB Titer TNP Alpha Fetoprotein 1.6 25-OH Vitamin D Total 19.0 L IgG Total 1196 IgA Total 553 H IgM 67 LILI Screen NEGATIVE Anti-Mitochondrial Ab NEGATIVE Anti-Smooth Muscle Ab <20 Hep Bs Antigen Negative Hep Bs Antibody REACTIVE Hep B Core Total Ab Nonreactive Hepatitis C Ab (EIA) Nonreactive HIV 1&2 Ab/P24 Ag 4thGn Nonreactive Date of Service: 09/25/24 Procedure(s): XR chest 2V Accession Number(s): [id number] cc: Physician,Unknown ; Lydia Farfan EXECUTIVE ASSOCIATE~ EXAMINATION: XR CHEST 2 VIEW CLINICAL INFORMATION: Chest pain COMPARISON: None TECHNIQUE: PA and lateral views of the chest obtained. FINDINGS: The lungs are clear. There are no pleural effusions. The cardiomediastinal silhouette is normal. No rib fracture, bone lesion or pneumothorax is detected. Right upper quadrant surgical clips are likely post cholecystectomy. XR/XR chest 2V IMPRESSION: No acute cardiopulmonary disease. Assessment & Plan Assessment & Plan (1) Liver mass: Code(s): R16.0 - Hepatomegaly, not elsewhere classified Category: Medical Plan: MRI findings of two large hepatic lesions with benign imaging characteristics, absence of malignancy markers, and clinical context (female, no risk factors for malignancy). FNH is supported by radiology. Mild, stable elevation of liver enzymes is consistent with FNH, and mass effect may explain right upper quadrant pain. Additional Testing: Repeat MRI with specialized contrast-enhanced MRI in 3 months to confirm stability and further characterize lesions, differentiating FNH from hepatic adenoma (precancerous potential). Medications: Continue Vitamin D supplementation. Lifestyle Changes: Monitor for new or worsening symptoms (pain, jaundice, constitutional symptoms). Follow-Up: Reassess after imaging in 3 months; consider surgical or interventional radiology consult (ablation/embolization) if lesions increase in size, symptoms worsen, or diagnosis remains uncertain. Biopsy if imaging is inconclusive. (2) Transaminitis: Code(s): R74.01 - Elevation of levels of liver transaminase levels Category: Medical Plan: Persistent but only mildly elevated AST/ALT, improved on repeat testing. Along with elevated and GGT and IgA. Elevation may be multifactorial: FNH, possible fatty liver, or other metabolic factors. No evidence of viral hepatitis, autoimmune hepatitis, or malignancy. Additional Testing: Repeat fasting liver panel in 3 months with imaging. Monitor for further changes. Medications: No changes at this time. Lifestyle Changes: Maintain healthy diet, avoid hepatotoxins, continue Vitamin D. Follow-Up: With imaging and labs in 3 months. (3) Fatigue: Code(s): R53.83 - Other fatigue Category: Medical Qualifiers: Fatigue type: chronic, unspecified Qualified Code(s): R53.82 - Chronic fatigue, unspecified Plan: With approx 4.1% wt loss since 09/2024 and decrease appetite. Symptoms may be related to hepatic lesions (mass effect), vitamin D deficiency, or metabolic/endocrine causes. No evidence of infection, anemia, or thyroid dysfunction. Family history of diabetes. Additional Testing: A1C ordered today to rule out diabetes as a contributor to fatigue, appetite change, and weight loss. Medications: Continue current regimen. Lifestyle Changes: Monitor symptoms, ensure adequate nutrition, continue vitamin D. Follow-Up: Review A1C when available; address any abnormal findings. Plan Follow-up in 3 months or sooner as needed Time: I spent a total of 45 minutes on the date of encounter which includes: Preparing to see the patient (reviewed previous documentation, test results and medical history) Performing a medically appropriate exam and/or evaluation Ordering medications, tests, and procedures Documenting clinical information in the health record Orders: Orders Comprehensive [place]. Panel Fast 3 Months R16.0 - Hepatomegaly, not elsewhere classified Hemoglobin A1c Today R74.01 - Elevation of levels of liver transaminase levels Complete Blood Count Auto Diff 3 Months R16.0 - Hepatomegaly, not elsewhere classified Coding Level of Care Code Established Pt Est Pt Level 4 (15693) Patient Type Established Diagnoses Liver mass R16.0 Transaminitis R74.01 Chronic fatigue R53.82 Fatigue type: chronic, unspecified
[2025-06-05 08:00] VITALS: BP 109/73; PULSE 70; O2SAT 99; BMI 32.9
== END 2025-06-05 08:39 | disposition home or self-care (01) ==
LOC: HO.HGI 07:44
PROVIDERS: Visit Provider Nurse Practitioner Family
DX: R16.0 Hepatomegaly, not elsewhere classified (principal); R74.01 Elevation of levels of liver transaminase levels; R53.82 Chronic fatigue, unspecified
CPT/HCPCS: 99214

== ENCOUNTER 2025-06-24 07:18 | Outpatient (REF) | payer BC, SELFPAY ==
[2025-06-24 08:24] LABS: Hemoglobin A1C 145.5732 umol/L; Total Hemoglobin (HGBA1C) 3650.3574 umol/L
[2025-06-24 09:00] LABS: Alanine Aminotransferase 57 U/L (0-31); Albumin Level 4.3 g/dL (3.5-5.0); Alkaline Phosphatase 79 U/L (39-117); Aspartate Amino Transferase 53 U/L (5-31); Cholesterol 252 mg/dL (<200); HDL Cholesterol 67 mg/dL (>40); Total Protein 7.6 g/dL (6.5-8.0); Triglycerides 88 mg/dL (<150)
== END 2025-06-24 07:19 | disposition home or self-care (01) ==
LOC: HO.LAB 07:18
PROVIDERS: Visit Provider Nurse Practitioner Family
DX: R74.01 Elevation of levels of liver transaminase levels (principal); R79.89 Other specified abnormal findings of blood chemistry; E78.00 Pure hypercholesterolemia, unspecified
CPT/HCPCS: 36415; 80061; 80076; 83036

== ENCOUNTER 2025-07-19 09:25 | Outpatient (AMB) | payer BC, SELFPAY ==
--- NOTE | 2025-07-19 09:30 | MHC.PC.OV ---
Vital Signs 07/19/25 09:31 Height 5 ft 2.9 in Weight 189 lb 8 oz BMI 33.7 BP 100/72 Blood Pressure Location Lt brachial Position Sitting Pulse 64 Pulse Source Pulse Oximeter Temp 97.1 F Temp Source Temporal Artery Scan Pulse Oximetry (%) 98 Oxygen Delivery Method Room Air Intake Visit Reasons: f/u HLD Intake Note: Patient is here to follow up on HLD. Outdoor Pursuits Instructor Required: No Research Geneticist: Not Required per policy Accompanied by: Self / Same As Patient Allergies No Known Allergies Allergy (Verified 07/19/25 09:48) Medication List - Last Reconciled 07/19/25 by Liliya Moore PA-C atorvastatin (Lipitor) 10 mg PO BEDTIME cholecalciferol (vitamin D3) 25 mcg PO DAILY lisinopril 10 mg PO DAILY loratadine (Claritin) 10 mg PO DAILY melatonin 10 mg PO BEDTIME PRN rhubarb root extract (Estroven Complete Menopause Relief) mg PO Tobacco use date assessed: 07/19/25 Dental Screening Dental Screen Date: 03/08/25 HPI f/u HLD HPI Details 54-year-old female with past medical history of hypertension, depression last seen 04/2025 coming in for follow up. In review of the notes, patient was seen by GI 05/2025 recommending repeating MRI in 3 months to confirm stability of liver lesions. Presenting with ongoing abdominal pain and hyperlipidemia management. Reports a burning sensation in the upper abdomen, progressively worsening, with daily discomfort and more intense episodes two to three times a week. Denies fever, chills, nausea, vomiting, or changes in stool. Hyperlipidemia On atorvastatin since June, with some improvement in liver function tests. Following dietary and lifestyle modifications for cholesterol management. [facility] Medical History Fatigue Transaminitis Surgical History History of esophagogastroduodenoscopy (EGD) Hx of colonoscopy H/O breast surgery History of ankle surgery History of left oophorectomy History of hernia surgery History of cholecystectomy History of breast biopsy History of reduction surgery of right breast History of reduction surgery of left breast Family History Other Substance use disorder Social History Housing: Condominium Alcohol intake: current Alcohol intake frequency: holidays/special occasions only Patient Tobacco Use Status: Former Tobacco user Years Smoked: 30 years ago e-Cigarette/Vaping Use: Never Used Second Hand Smoke Exposure: Yes service: No Current occupational status: employed 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 Cognitive needs: No Hearing needs: No Vision needs: Yes (Glasses) Questionnaire Thrive Questionnaire Date Thrive assessed: 03/01/25 I am a: Patient What is your living situation today?: I have a steady place to live Within the past 12 months, did the food you bought not last and you didn't have the money to get more?: Never true Within the past 12 months, did you worry whether your food would run out before you got money to buy more?: Never true Do you have trouble paying for medicines?: No Do you have trouble getting transportation to medical appointments?: No Do you have trouble paying your heating and electricity bill?: No Do you have trouble taking care of your child, family member or friend?: No Do you have trouble with day-to-day activities such as bathing, preparing meals, shopping, managing finances, etc.?: No Are you currently unemployed and looking for a job?: No Are you interested in more education?: I choose not to answer this question Please select the resources that you would like help with: None Currently or been in a relationship where the following occur: Controlled Emotionally THRIVE Score: 1 ALONDRA-7 AMB Questionnaire ALONDRA-7 Date ALONDRA - 7 assessed: 03/08/25 Source: Developed by Drs. Elio Mathis, Queta De Jesus, Clayton Mc and colleagues, with an educational kinag from [employer]. Review of Systems Const Denies body aches, Denies chills, Denies fever(s), Denies headache(s) and Denies poor appetite Eyes Reports no additional complaints ENT Denies dizziness and Denies headache(s) Card Denies chest pain, Denies edema, Denies lightheadedness and Denies dyspnea Resp Denies dyspnea GI Reports as per HPI, Reports abdominal pain, Denies constipation, Denies diarrhea, Denies nausea and Denies vomiting Reports no additional complaints Musc Reports no additional complaints and Denies abnormal gait Skin/Breast Reports system reviewed and no additional complaints, except as documented Neuro Denies abnormal gait, Denies dizziness and Denies headache(s) Psych Reports no additional complaints Physical exam (Primary Care) Vital Signs: Last Vital Signs Temp 97.1 F 07/19/25 09:31 Pulse 64 07/19/25 09:31 BP 100/72 07/19/25 09:31 Pulse Ox 98 07/19/25 09:31 Oxygen Delivery Method Room Air 07/19/25 09:31 BMI result Body Mass Index 33.7 Tobacco/Smoking Status: Tobacco use Status Tobacco use date assessed 07/19/25 07/19/25 09:35 Patient Tobacco Use Status Former Tobacco user 07/19/25 09:35 e-Cigarette/Vaping Use Never Used 07/19/25 09:35 Thrive Assessment: Date of Thrive Assessment Date Thrive assessed 03/01/25 07/19/25 09:35 Currently or been in a relationship where the following occur: Controlled Emotionally Const General: cooperative, healthy appearing, comfortable and no acute distress Orientation/consciousness: patient oriented x3 HENMT Head: Yes normocephalic Ears: hearing grossly normal bilaterally General nose exam: Normal external nose present Eyes General: appearance normal, both eyes and all related structures Conjunctivae: conjunctivae normal Neck Neck: Yes full ROM and Yes no lymphadenopathy Resp Effort & Inspection: normal respiratory effort Auscultation: clear to auscultation bilaterally, no crackles, no rales, no rhonchi and no wheezes Cardio Rate: regular rate Rhythm: regular rhythm GI Palpation (GI): Soft to palpation, not firm, Tenderness to palpation present (GI) in the epigastrum, no guarding, not rigid, no masses and No Rebound tenderness present Skin General skin exam: no rashes or lesions noted Neuro General: patient oriented x3 Gait exam (Neuro): Normal gait present Extrem General: Yes normal to inspection, Yes full ROM and No edema Psych Affect: normal affect Attitude: cooperative Insight: Good insight present (Psych) Judgement: Good judgement present (Psych) Coding Level of Care Code Est Pt Level 3 (26586) Diagnoses Hypertension I10 Hypercholesterolemia E78.00 Liver mass R16.0 Assessment & Plan Assessment & Plan (1) Hypertension: Code(s): I10 - Essential (primary) hypertension Category: Medical Plan: Continue on current blood pressure medication. Avoid salt intake and encourage healthy diet and regular exercise. (2) Hypercholesterolemia: Code(s): E78.00 - Pure hypercholesterolemia, unspecified Category: Medical Plan: Avoid foods that are high in cholesterol such as red meat, fried foods, eggs and baked goods. Triglyceride goal of less than 150 and LDL goal of less than 130. Continue on Atovastatin 10 mg (3) Liver mass: Code(s): R16.0 - Hepatomegaly, not elsewhere classified Category: Medical Plan: The patient reports a burning sensation in the upper abdomen, with episodes occurring daily and more intense episodes two to three times a week. The plan includes an MRI of the abdomen to further investigate the cause of the pain, and the patient is advised to try antacids like TUMS or famotidine to see if symptoms improve. Continue to follow with GI Plan This note was constructed using voice recognition software. While every effort has been made to ensure accuracy and retail selling floor leader, still areas may have been included sometimes these areas may affect the content or meeting of the given symptoms. Total time spent caring for the patient today was 20 minutes. This includes time spent before the visit reviewing the chart, time spent during the visit, and time spent after the visit and documentation. Patient was informed and verbally consented to the use of an ambient scribe for clinic note documentation during this visit.
[2025-07-19 09:31] VITALS: BP 100/72; PULSE 64; TEMP 36.2; O2SAT 98; BMI 33.7
--- OUTSIDE RECORDS SUMMARY | 2025-07-19 10:08 | XMS_ITS | Clinical Summary ---
Author Organization [facility] [place] Address [address] [place] [address] Care Team Providers Care Brake Adjuster Name Role Phone Unavailable Primary Care Provider Unavailabl e Allergies Active Allergy Reactions Criticality Noted Date [...] Name Administration Dates Next Due Hepatitis B (Beugcmj-S-Ovcoz , Recombivax HB-Adult) 19yo and older 08/25/2016,03/24/2016,02/26/2016 [...] left ovarian teratoma FLEXIBLE SIGMOIDOSCOPY 09/10/2011 PROCEDURE: CT SIGMOIDOSCOPY FLX DX W/COLLJ SPEC BR/WA IF [...] 2022 Zoster Vaccines (1 of 2) 2022 DTaP,Tdap,and Td Vaccines (3 - Td or Tdap) 09/25/2024 09/25/2014, 07/10/2007 Depression Screening 11/14/2024 Hypertension/CHF/CAD Annual BMP Blood Test 03/30/2025 03/30/2024, 03/30/2024 COVID-19 Vaccine ( season) 2025 09/29/2022, 10/30/2021, 02/26/2021, Additional history exists Influenza Vaccine (#1) 2025 , 08/16/2023, 09/15/2021, [...] to Health Maintenance Results * Colonoscopy (05/25/2024) Pathologist [facility] Colonoscopy no interpretation , abstracted Anatomical Region Laterality Modality Other [facility] Provider HEALTH MAINTENANCE Final Result * Annual BMP Blood Test (03/30/2024) [facility] Annual BMP Blood Test abstracted [facility] Provider HEALTH MAINTENANCE Final Result * (ABNORMAL) Lipid panel (03/30/2024) [facility] LDL/HDL Ratio 4 0 - 4 Triglycerides 125 0 - 150 mg/dL Cholesterol 219(A) 0 - 200 mg/dL HDL 55 >=40 mg/dL LDL Cholesterol 139(A) 0 - 100 mg/dL Blood Venous blood specimen / Unknown [facility] Provider LAB BLOOD ORDERABLES Chela l Result * Cervical Cancer Screening: HPV (03/23/2023) [facility] Cervical Cancer Screening: HPV no interpretation , abstracted [facility] Provider HEALTH MAINTENANCE Final Result from Last 3 Months or Most Recently Relevant to Health Maintenance Insurance [facility]
== END 2025-07-19 10:09 | disposition home or self-care (01) ==
LOC: HO.HMCH 09:26
DX: I10 Essential (primary) hypertension (principal); E78.00 Pure hypercholesterolemia, unspecified; R16.0 Hepatomegaly, not elsewhere classified

== ENCOUNTER → 2025-08-09 10:04 | Outpatient (BNV) | payer BC, SELFPAY | PROVIDERS: Visit Provider Radiology Diagnostic Radiology | DX: K76.9 Liver disease, unspecified (principal) | CPT/HCPCS: 74183 ==

== ENCOUNTER 2025-08-09 10:06 | Outpatient (REF) | payer BC, SELFPAY ==
--- NOTE | ~2025-08-09 | MR_ITS ---
EXAMINATION: MR ABDOMEN WITHOUT AND WITH CONTRAST CLINICAL INFORMATION: Hepatomegaly. COMPARISON: April 29, 2025 TECHNIQUE: MR abdomen was performed without and with use of 8.5 mL intravenous [(Gadavist) gadolinium contrast. Postcontrast images are performed in multiphase dynamic sequences. Imaging was performed in 3 planes. No reported immediate complications FINDINGS: LUNG BASES: No enhancing mass/lesion. LIVER, GALLBLADDER, AND BILIARY TREE: There are measures 17 cm. There is an 8.6 cm isointense T2 and hypointense T1 homogeneously enhancing lesion during the arterial and portal venous phase with a delayed enhancing center and the segment II. There is a 3.4 x 3.5 cm isointense T2 and hypointense T1 and homogeneously enhancing there are in arterial and portal venous phase lesion in likely segment VII. There are a few scattered nonenhancing fluid signal characteristic lesions throughout the liver, the largest with thin septations measures 3.1 cm in segment VIII. Main portal vein and hepatic veins and intrahepatic portion of the IVC are patent. No intrahepatic biliary ductal dilatation. . Status post cholecystectomy. Common bile duct measures 5 mm without intraluminal signal abnormality. PANCREAS: No focal mass. No peripancreatic fluid collection. No main pancreatic ductal dilatation. SPLEEN: 10 cm. No mass. ADRENAL GLANDS: No nodular lesions. KIDNEYS AND URETERS: There is a 2.7 cm fluid signal characteristic lesion in the upper pole/midportion junction right kidney. Few scattered less than 0.2 cm cyst in the left kidney. Normal enhancement pattern of the renal parenchyma. No hydronephrosis. No gross enhancing renal mass. GASTROINTESTINAL TRACT: Abundant stool. No intestinal obstruction pattern. No ascites. ABDOMINAL WALL: Diastases abdominal rectus muscles in the periumbilical region. LYMPH NODES: No mesenteric or retroperitoneal lymphadenopathy. VASCULAR: No aneurysm or dissection, abdominal aorta. OSSEOUS STRUCTURES: Multilevel thoracolumbar spondylosis. MR/MR abdomen wo/w con IMPRESSION: Overall stable liver lesions with similar diagnostic considerations. Electronically signed by: Vito Mcneil MD 08/09/2025 11:32 AM EDT
--- OUTSIDE RECORDS SUMMARY | 2025-08-09 11:21 | XMS_ITS | Clinical Summary ---
Author Organization [facility] [place] Address [address] [place] [address] Care Team Providers Care Sanding Machine Tender Name Role Phone Unavailable Primary Care Provider [...] Name Administration Dates Next Due Hepatitis B (Cjocnby-E-Jails , Recombivax HB-Adult) 19yo and older 08/25/2016,03/24/2016,02/26/2016 [...] left ovarian teratoma FLEXIBLE SIGMOIDOSCOPY 09/10/2011 PROCEDURE: AL SIGMOIDOSCOPY FLX DX W/COLLJ SPEC BR/WA IF [...] 03/30/2024 Colorectal Cancer Screening: Colonoscopy 05/25/2034 05/25/2024 RSV Immunization Adult Patients (1 - 1-dose 75+ series) 2047 MMR Vaccines Aged Out 03/24/2016, 02/26/2016 No [...] Health Maintenance Results * Colonoscopy (05/25/2024) Pathologist [facility] Colonoscopy no interpretation , abstracted Anatomical Region Laterality Modality Other [facility] Provider HEALTH MAINTENANCE Final Result * Annual BMP Blood Test (03/30/2024) [facility] Annual BMP Blood Test abstracted [facility] Provider HEALTH MAINTENANCE Final Result * (ABNORMAL) Lipid panel (03/30/2024) [facility] LDL/HDL Ratio 4 0 - 4 Triglycerides 125 0 - 150 mg/dL Cholesterol 219(A) 0 - 200 mg/dL HDL 55 >=40 mg/dL LDL Cholesterol 139(A) 0 - 100 mg/dL Blood Venous blood specimen / Unknown [facility] Provider LAB BLOOD ORDERABLES Chela l Result * Cervical Cancer Screening: HPV (03/23/2023) [facility] Cervical Cancer Screening: HPV no interpretation , abstracted [facility] Provider HEALTH MAINTENANCE Final Result from Last 3 Months or Most Recently Relevant to Health Maintenance Insurance [facility]
== END 2025-08-09 10:07 | disposition home or self-care (01) ==
LOC: HO.MRI 10:06
PROVIDERS: Visit Provider Nurse Practitioner Family
DX: R16.0 Hepatomegaly, not elsewhere classified (principal); R79.89 Other specified abnormal findings of blood chemistry
CPT/HCPCS: 74183; A9585

== ENCOUNTER 2025-08-23 06:34 | Outpatient (REF) | payer BC, SELFPAY ==
[2025-08-23 06:47] LABS: MANUAL DIFF FLAG NO
[2025-08-23 07:16] LABS: Hematocrit 42.0 % (37.0-47.0); Hemoglobin 13.8 g/dl (12.0-16.0); Imm Gran Abs Auto 0.01 X10*3/uL (0.00-0.03); Imm Gran Pct Auto 0.2 % (0.0-0.4); Lymphocytes Absolute Auto 2.9 X10*3/uL (1.2-4.9); Mean Corpuscular HGB Conc 32.9 g/dl (31.0-35.0); Mean Corpuscular Hemoglobin 28.4 pg (27.0-33.0); Mean Corpuscular Volume 86.4 fL (80.0-98.0); NRBC Abs Auto 0.000 X10*3/uL (0.0-0.012); NRBC Pct Auto 0.0 /100WBC (0.0-0.2); Platelet Count 320 X10*3/uL (160-400); Red Blood Count 4.86 X10*6/uL (4.20-5.50); White Blood Count 6.2 X10*3/uL (4.8-10.8)
[2025-08-23 07:50] LABS: Alanine Aminotransferase 34 U/L (0-31); Albumin Level 4.6 g/dL (3.5-5.0); Alkaline Phosphatase 90 U/L (39-117); Anion Gap 13 (12-20); Aspartate Amino Transferase 38 U/L (5-31); Blood Urea Nitrogen 9 mg/dL (9-16); Calcium 9.8 mg/dL (8.4-10.2); Carbon Dioxide 28 mmol/L (22-29); Chloride 106 mmol/L (96-108); Cholesterol 185 mg/dL (<200); Estimated Glomerular Filt Rate > 60; HDL Cholesterol 61 mg/dL (>40); Potassium 4.8 mmol/L (3.3-5.1); Sodium 142 mmol/L (135-145); Total Protein 7.8 g/dL (6.5-8.0); Triglycerides 71 mg/dL (<150)
== END 2025-08-23 06:35 | disposition home or self-care (01) ==
LOC: HO.LAB 06:34
PROVIDERS: Visit Provider Nurse Practitioner Family
DX: Z01.84 Encounter for antibody response examination (principal); E78.00 Pure hypercholesterolemia, unspecified; R16.0 Hepatomegaly, not elsewhere classified
CPT/HCPCS: 36415; 80053; 80061; 82784; 85025

== ENCOUNTER 2025-10-08 15:16 | Outpatient (AMB) | payer BC, SELFPAY ==
--- NOTE | 2025-10-08 15:26 | MHC.OFFVIS ---
Vital Signs 10/08/25 15:27 Height 5 ft 2.9 in Weight 185 lb BMI 32.9 BP 125/70 Blood Pressure Location Lt brachial Position Sitting Pulse 78 Intake Visit Reasons: Follow up Intake Note: Patient follow up for fatigue and lab results. Patient deniies any GI issues. Chest Painting And Sealing Supervisor Required: No Accompanied by: Self / Same As Patient Allergies No Known Allergies Allergy (Verified 10/08/25 15:25) HPI HPI Follow up: Details: Patient is a 54-year-old female with PMH of hyperlipidema. FU for hepatic lesion surveillance (focal nodular hyperplasia [FNH]) and discussion of recent MRI, persistent mild RUQ pain, and lab f/u. Since last visit, RUQ pain persists but is not worsening or debilitating. No new or worsening GI sx. Denies recent N/V; fatigue unchanged (chronic), appetite stable, no documented wt loss. Reports occasional mild reflux, linked to specific foods, managed with prn Tums and milk. No interim hospitalizations or urgent events. Ongoing compliance with recommended labs and imaging. No new barriers to care noted. [facility] Medical History (Updated 10/08/25 @ 15:32 by Tatianna Osborn CNP) Focal nodular hyperplasia of liver Fatigue Transaminitis Surgical History History of esophagogastroduodenoscopy (EGD) Hx of colonoscopy H/O breast surgery History of ankle surgery History of left oophorectomy History of hernia surgery History of cholecystectomy History of breast biopsy History of reduction surgery of right breast History of reduction surgery of left breast Family History Other Substance use disorder Social History Housing: Condominium Alcohol intake: current Alcohol intake frequency: holidays/special occasions only Patient Tobacco Use Status: Former Tobacco user Years Smoked: 30 years ago e-Cigarette/Vaping Use: Never Used Second Hand Smoke Exposure: Yes service: No Current occupational status: employed 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 Cognitive needs: No Hearing needs: No Vision needs: Yes (Glasses) Review of Systems Const Reports as per HPI ENT Reports as per HPI Card Reports as per HPI Resp Reports as per HPI GI Reports as per HPI Reports as per HPI Physical Exam Vital Signs: Last Vital Signs Pulse 78 10/08/25 15:27 BP 125/70 10/08/25 15:27 BMI result Body Mass Index 32.9 Const General: healthy appearing, no acute distress and well developed Nutritional Appearance: average body habitus Orientation/consciousness: patient oriented x3 HEENT Head: Yes normal to inspection, Yes normocephalic and Yes atraumatic Face and sinus: Yes normal facial exam Eyes General: appearance normal, both eyes and all related structures Neck Neck: Yes normal visual inspection Resp Effort & Inspection: normal respiratory effort, able to speak in complete sentences, no tracheal deviation and symmetric chest movement Cardio Jugular venous distension: no JVD GI Inspection: Yes normal to inspection, No distended and Yes obesity Palpation (GI): Soft to palpation, not firm, nontender and No hepatosplenomegaly present Auscultation: normal bowel sounds Neuro General: patient oriented x3 Gait exam (Neuro): Normal gait present Psych Appearance: grossly normal Mental Status: mental status grossly normal Speech and movement: Normal speech and movement present Affect: normal affect Attitude: cooperative Thought process: Normal thought process present Thought content: Normal thought content present Insight: Good insight present (Psych) Judgement: Good judgement present (Psych) Results Reviewed Results Reviewed: Laboratory Tests 08/23/25 06:45 Total Bilirubin 1.0 AST 38 H ALT 34 H Alkaline Phosphatase 90 Total Protein 7.8 Albumin 4.6 Triglycerides 71 Cholesterol 185 LDL Cholesterol, Calc 110 H HDL Cholesterol 61 Date of Service: 08/09/25 Procedure(s): MR abdomen wo/w con Accession Number(s): [id number] cc: Liliya Moore PA-C; Tatianna Osborn GENERAL PARTNER~ Reason for Exam: R16.0 - Hepatomegaly, not elsewhere classified EXAMINATION: MR ABDOMEN WITHOUT AND WITH CONTRAST CLINICAL INFORMATION: Hepatomegaly. COMPARISON: April 29, 2025 TECHNIQUE: MR abdomen was performed without and with use of 8.5 mL intravenous [(Gadavist) gadolinium contrast. Postcontrast images are performed in multiphase dynamic sequences. Imaging was performed in 3 planes. No reported immediate complications FINDINGS: LUNG BASES: No enhancing mass/lesion. LIVER, GALLBLADDER, AND BILIARY TREE: There are measures 17 cm. There is an 8.6 cm isointense T2 and hypointense T1 homogeneously enhancing lesion during the arterial and portal venous phase with a delayed enhancing center and the segment II. There is a 3.4 x 3.5 cm isointense T2 and hypointense T1 and homogeneously enhancing there are in arterial and portal venous phase lesion in likely segment VII. There are a few scattered nonenhancing fluid signal characteristic lesions throughout the liver, the largest with thin septations measures 3.1 cm in segment VIII. Main portal vein and hepatic veins and intrahepatic portion of the IVC are patent. No intrahepatic biliary ductal dilatation. . Status post cholecystectomy. Common bile duct measures 5 mm without intraluminal signal abnormality. PANCREAS: No focal mass. No peripancreatic fluid collection. No main pancreatic ductal dilatation. SPLEEN: 10 cm. No mass. ADRENAL GLANDS: No nodular lesions. KIDNEYS AND URETERS: There is a 2.7 cm fluid signal characteristic lesion in the upper pole/midportion junction right kidney. Few scattered less than 0.2 cm cyst in the left kidney. Normal enhancement pattern of the renal parenchyma. No hydronephrosis. No gross enhancing renal mass. GASTROINTESTINAL TRACT: Abundant stool. No intestinal obstruction pattern. No ascites. ABDOMINAL WALL: Diastases abdominal rectus muscles in the periumbilical region. LYMPH NODES: No mesenteric or retroperitoneal lymphadenopathy. VASCULAR: No aneurysm or dissection, abdominal aorta. OSSEOUS STRUCTURES: Multilevel thoracolumbar spondylosis. MR/MR abdomen wo/w con IMPRESSION: Overall stable liver lesions with similar diagnostic considerations. Electronically signed by: Vito Mcneil MD 08/09/2025 11:32 AM Assessment & Plan Assessment & Plan (1) Focal nodular hyperplasia of liver: Code(s): K76.89 - Other specified diseases of liver Category: Medical Plan: MRI confirms benignity and slight reduction in nodule size; cyst unchanged. Persistent discomfort warrants multidisciplinary input for procedural intervention (ablation, embolization, resection). Rationale: Symptom persistence despite benign imaging; pt preference to discuss procedural options. Additional Testing: None immediately; await IR recommendations. Medications: No hepatic-specific pharma required; maintain avoidance of hepatotoxic agents. Lifestyle Recommendations: Reinforce moderation/avoidance of alcohol, careful review of OTC/supplement use. Educational material on FNH and hepatic cysts reviewed; handouts offered. Referrals / Coordination of Care: Internal referral to IR for consult re: procedural options. Follow-Up Plan: Routine GI FU in 6 mos. Repeat LFTs 1 wk prior to next appt or prn per IR recs. Earlier FU if new/worsening sx (pain, jaundice, wt loss, etc). (2) Transaminitis: Code(s): R74.01 - Elevation of levels of liver transaminase levels Category: Medical Plan: Improving/slightly decreased. Mild, stable AST/ALT elevation. Rationale: Possible connection to estrogen/supplement use; no acute intervention warranted. Additional Testing: None at present; repeat LFTs prior to next scheduled visit. Medications: Continue to avoid hepatotoxic meds/supplements. Encourage pt to discuss stopping estrogenic supplement w/ PCP or crimper operator before abrupt cessation. Lifestyle Recommendations: Monitor and minimize nonessential OTCs, tangela hepatotoxic herbals. Referrals / Coordination of Care: Encourage discussion with PCP/OB-Ward Service Supervisor re: menopausal sx mgmt alternatives. Follow-Up Plan: Monitor trend; FU 6 mos with repeat labs (sooner prn for sx or if stopping estrogen). Plan Follow-up in 6 months or sooner as needed Time: I spent a total of 30 minutes on the date of encounter which includes: Preparing to see the patient (reviewed previous documentation, test results and medical history) Performing a medically appropriate exam and/or evaluation Ordering medications, tests, and procedures Documenting clinical information in the health record Orders: Referrals Interventional Radiology Referral K76.89 - Other specified diseases of liver Coding Level of Care Code Established Pt Est Pt Level 4 (87331) Patient Type Established Diagnoses Focal nodular hyperplasia of liver K76.89 Transaminitis R74.01
[2025-10-08 15:27] VITALS: BP 125/70; PULSE 78; BMI 32.9
--- OUTSIDE RECORDS SUMMARY | 2025-10-08 18:56 | XMS_ITS | Clinical Summary ---
Author Organization [facility] Address [address] [place] [address] Care Team Providers Care Fern Gatherer Name Role Phone Unavailable Primary Care Provider [...] in bowel habits 07/28/2011 Mastalgia 07/28/2011 Immunizations Immunization Administration Dates Next Due Hepatitis B ([id number] , Recombivax HB-Adult) 19yo and older 08/25/2016,03/24/2016,02/26/2016 [...] Years Used Date Smoking Tobacco: Former Cigarettes 0 Q uit: 11/14/1993 Smokeless Tobacco: Never Alcohol [...] Results * Colonoscopy (05/25/2024) Pathologist [facility] Colonoscopy no interpretation , abstracted Anatomical Region Laterality Modality Other [facility] Provider HEALTH MAINTENANCE Final Result * Annual BMP Blood Test (03/30/2024) Pathologist [facility] Annual BMP Blood Test abstracted [facility] Provider HEALTH MAINTENANCE Final Result * (ABNORMAL) Lipid panel (03/30/2024) [facility] LDL/HDL Ratio 4 0 - 4 Triglycerides 125 0 - 150 mg/dL Cholesterol 219(A) 0 - 200 mg/dL HDL 55 >=40 mg/dL LDL Cholesterol 139(A) 0 - 100 mg/dL Blood Venous blood specimen / Unknown Result [facility] Provider LAB BLOOD ORDERABLES Chela l Result * Cervical Cancer Screening: HPV (03/23/2023) [facility] Cervical Cancer Screening: HPV no interpretation , abstracted [facility] Provider HEALTH MAINTENANCE Final Result from Last 3 Months or Most Recently Relevant to Health Maintenance Insurance [address] [place] [address] [facility] [place]
== END 2025-10-08 15:51 | disposition home or self-care (01) ==
LOC: HO.HGI 15:17
PROVIDERS: Visit Provider Nurse Practitioner Family
DX: K76.89 Other specified diseases of liver (principal); R74.01 Elevation of levels of liver transaminase levels
CPT/HCPCS: 99214